=== PATIENT | female | born 1940 | race Hispanic/Latino ===

== ENCOUNTER 2018-04-18 20:13 | Observation (INO) | payer MEDICARE, OTHER ==
[2018-04-18] MEDS ORDERED: Aspirin 325 mg EC Tablets PO STA (21:06)
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
[2018-04-18 21:28] LABS: BASO # 0.1 K/uL (0.0-0.2); BASO % 0.8 % (0.0-2.0); EOS # 0.1 K/uL (0.0-0.7); EOS % 1.5 % (0.0-4.0); LYMPH % 11.8 % (20.0-40.0); MEAN CELL VOLUME 87.4 fL (81.0-99.0); MEAN CORPUSCULAR HEMOGLOBIN 30.2 pg (27.0-31.0); MEAN CORPUSCULAR HGB CONC 34.5 g/dL (33.0-37.0); MEAN PLATELET VOLUME 9.1 fL (7.2-11.7); MONO # 0.6 K/uL (0.0-0.8); MONO % 6.7 % (0.0-10.0); NEUT # 6.9 K/uL (1.8-7.0); NEUT % 79.2 % (50.0-75.0); NRBC % 0.1 % (0.0-2.0); RBC 4.98 Mil/uL (3.80-5.20); RED CELL DISTRIBUTION WIDTH 14.9 % (11.5-14.5); WHITE BLOOD COUNT 8.7 K/uL (4.8-10.8)
[2018-04-18 21:35] LABS: INR 1.2; PROTHROMBIN TIME 13.1 SECONDS (9.7-12.2)
[2018-04-18 22:19] LABS: ALB/GLOB RATIO 1.3 (1.0-2.1); ALT/SGPT 20 U/L (9-52); AST/SGOT 20 U/L (14-36); BLOOD UREA NITROGEN 11 mg/dL (7-17); CALCIUM 9.4 mg/dl (8.6-10.4); GFR AFRICAN-AMERICAN > 60; GFR NON-AFRICAN AMERICAN > 60
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
[2018-04-19 05:00] LABS: CK-MB 1.32 ng/mL (0.0-3.38)
--- NOTE | 2018-04-19 08:18 | RAD ---
Date of service: 04/18/2018 PROCEDURE: CHEST RADIOGRAPH, 1 VIEW HISTORY: chest pain COMPARISON: 10/27/2016 FINDINGS: LUNGS: Chin obscures each apex. There is opacity projecting over the left mid to lower lung zone Basilio changes in size and configuration between the 2 frontal views available. This may in part be due to technique and body habitus projection. However is not appreciated on prior study. AP a lateral view is recommended for further clarification. PLEURA: No pneumothorax or pleural fluid seen. CARDIOVASCULAR: Top-normal heart size. Aortic knob calcified. No chris pulmonary venous congestion OSSEOUS STRUCTURES: Not clearly appreciated over thoracic spine VISUALIZED UPPER ABDOMEN: Normal. OTHER FINDINGS: None. IMPRESSION: The inferior left hemithoracic opacity changes in configuration between the 2 available frontal views as detailed above. For clarification recommend PA and lateral views
--- NOTE | 2018-04-19 10:59 | CARD ---
APPROVED REPORT Date of service: 04/18/2018 EKG Measurement Heart [id number] <Conclusion> Sinus rhythm with premature supraventricular complexes Left axis deviation Incomplete right bundle branch block Possible Lateral infarct, age undetermined Abnormal ECG
[2018-04-19 11:58] LABS: CK-MB 1.26 ng/mL (0.0-3.38)
--- NOTE | 2018-04-19 16:27 | CP.PCM.PN ---
Subjective - Date & Time of Evaluation Date of Evaluation: 04/19/18 Time of Evaluation: 11:00 - Subjective Subjective: PGY-1 Medicine Progress Note for Dr. Kaiser's service Patient seen and examined at bedside. Patient offers no acute complaints. Patient denies chest pain, sob, n/v, constipation or diarrhea, dysuria, headaches, dizziness, palpitations, diaphoresis, fevers and chills. Objective - Vital Signs/Intake and Output Vital Signs (last 24 hours): Temp Pulse Resp BP Pulse Ox 97.5 F L 69 20 141/94 H 98 04/19/18 15:00 04/19/18 15:00 04/19/18 15:00 04/19/18 15:00 04/19/18 15:00 - Medications Medications: Current Medications Acetaminophen (Tylenol 325mg Tab) 650 mg PO Q6 PRN PRN Reason: Pain, moderate (4-7) Famotidine (Pepcid) 20 mg PO DAILY [facility] Last Admin: 04/19/18 14:42 Dose: 20 mg Heparin Sodium (Porcine) (Heparin) 5,000 units SC Q8 [facility] Last Admin: 04/19/18 14:43 Dose: 5,000 units Levothyroxine Sodium (Synthroid) 75 mcg PO 0630 [facility] Losartan Potassium (Cozaar) 50 mg PO DAILY [facility] Last Admin: 04/19/18 14:42 Dose: 50 mg Pneumococcal Polyvalent Vaccine (Pneumovax 23 Vaccine) 0.5 ml IM .ONCE ONE Stop: 04/21/18 12:01 Zolpidem Tartrate (Ambien) 5 mg PO HS [facility] - Labs Labs: 04/18/18 21:17 04/18/18 21:56 PT 13.1 SECONDS (9.7-12.2) H 04/18/18 21:17 INR 1.2 04/18/18 21:17 APTT 36 SECONDS (21-34) H 04/18/18 21:17 - Constitutional Appears: Non-toxic, No Acute Distress - Head Exam Head Exam: NORMAL INSPECTION, NORMOCEPHALIC - Respiratory Exam Respiratory Exam: Clear to Ausculation Bilateral, NORMAL BREATHING PATTERN. absent: Rales, Rhonchi, Wheezes - Cardiovascular Exam Cardiovascular Exam: REGULAR RHYTHM, +S1, +S2 - GI/Abdominal Exam GI & Abdominal Exam: Soft, Normal Bowel Sounds. absent: Distended, Firm, Guarding, Rigid, Tenderness - Extremities Exam Extremities Exam: Normal Inspection. absent: Calf Tenderness, Pedal Edema - Back Exam Back Exam: NORMAL INSPECTION. absent: CVA tenderness (L), CVA tenderness (R) - Neurological Exam Neurological Exam: Alert, Awake, Normal Gait, Oriented x3 - Psychiatric Exam Psychiatric exam: Normal Affect, Normal Mood - Skin Skin Exam: Intact, Normal Color Assessment and Plan - Assessment and Plan (Free Text) Assessment: Patient is a 77 yo female with PMH Parkinson, HTN, Hypothyroidism, and HLD presents to the hospital for evaluation of chest pain Plan: Chest Pain (resolved) EKG- negative for STEMI or NSTEMI AMAURI x3 negative Parkinson's Disease Carbidopa/Levodopa 25/100mg po daily HTN Losartan 50mg po daily Enalapril 2.5mg po daily Hypothyroidism Synthroid 75mg po gio HLD Lovastatin 10mg po daily Prophylaxis GI ppx: Pepcid 20mg po daily DVT ppx: Heparin 5000 units scq8h
[2018-04-19 20:51] LABS: URINE BACTERIA RARE (<OCC); URINE BILIRUBIN NEGATIVE (NEGATIVE); URINE BLOOD NEGATIVE (NEGATIVE); URINE CLARITY Clear (Clear); URINE COLOR Yellow (YELLOW); URINE GLUCOSE (UA) NORMAL (Normal); URINE LEUKOCYTE ESTERASE NEG Leu/uL (Negative); URINE PROTEIN NEGATIVE (NEGATIVE); URINE UROBILINOGEN NORMAL mg/dL (0.2-1.0)
[2018-04-19] MEDS ORDERED: Rosuvastatin Calcium 2.5 mg Tab PO SCH (22:00)
[2018-04-20 00:47] VITALS: O2SAT 96
[2018-04-20] MEDS ORDERED: Levothyroxine 75 MCG TAB PO SCH (06:30)
[2018-04-20 07:39] LABS: BASO # 0.1 K/uL (0.0-0.2); BASO % 1.4 % (0.0-2.0); EOS # 0.2 K/uL (0.0-0.7); EOS % 2.7 % (0.0-4.0); HEMOGLOBIN 14.7 g/dL (11.0-16.0); LYMPH # 1.3 K/uL (1.0-4.3); MEAN CELL VOLUME 88.9 fL (81.0-99.0); MEAN CORPUSCULAR HEMOGLOBIN 29.8 pg (27.0-31.0); MEAN CORPUSCULAR HGB CONC 33.5 g/dL (33.0-37.0); MEAN PLATELET VOLUME 9.4 fL (7.2-11.7); MONO # 0.5 K/uL (0.0-0.8); MONO % 7.8 % (0.0-10.0); NEUT % 66.1 % (50.0-75.0); NRBC % 0.1 % (0.0-2.0); RBC 4.95 Mil/uL (3.80-5.20); RED CELL DISTRIBUTION WIDTH 15.3 % (11.5-14.5)
[2018-04-20 07:52] VITALS: RESP 18; TEMP 97.4
[2018-04-20 08:06] LABS: ALB/GLOB RATIO 1.1 (1.0-2.1); ALBUMIN 3.7 g/dL (3.5-5.0); ALT/SGPT 14 U/L (9-52); AST/SGOT 17 U/L (14-36); BLOOD UREA NITROGEN 10 mg/dL (7-17); CALCIUM 9.2 mg/dl (8.6-10.4); GFR AFRICAN-AMERICAN > 60; GFR NON-AFRICAN AMERICAN > 60
[2018-04-20 10:17] VITALS: BP 176/98
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
[2018-04-20 16:16] VITALS: PULSE 80
[2018-04-21] MEDS ORDERED: Pneumococcal 23-Valent Vaccine IM ONE (12:00)
== END 2018-04-20 12:59 | disposition home or self-care (01) ==
LOC: C.ER 20:13 → C.6T 23:38
PROVIDERS: ADMIT Internal Medicine; ATTEND Internal Medicine
DX: R07.9 Chest pain, unspecified (principal); G20 Parkinson's disease; E78.00 Pure hypercholesterolemia, unspecified; E78.5 Hyperlipidemia, unspecified; G47.00 Insomnia, unspecified; I10 Essential (primary) hypertension; Z74.01 Bed confinement status; Z98.1 Arthrodesis status; H26.9 Unspecified cataract; E03.9 Hypothyroidism, unspecified
CPT/HCPCS: 36415; 71045; 80053; 81001; 83735; 84100; 84484; 85025; 85610; 85730; 93005; 99285; G0378; J1644

== ENCOUNTER 2018-07-09 09:10 | Observation (INO) | payer MEDICARE, OTHER ==
[2018-07-09 10:09] LABS: BASO # 0.1 K/uL (0.0-0.2); BASO % 1.1 % (0.0-2.0); EOS # 0.1 K/uL (0.0-0.7); EOS % 1.6 % (0.0-4.0); HEMOGLOBIN 14.8 g/dL (11.0-16.0); LYMPH # 1.9 K/uL (1.0-4.3); LYMPH % 20.8 % (20.0-40.0); MEAN CELL VOLUME 88.4 fL (81.0-99.0); MEAN CORPUSCULAR HEMOGLOBIN 29.1 pg (27.0-31.0); MONO # 0.6 K/uL (0.0-0.8); MONO % 6.7 % (0.0-10.0); NEUT # 6.3 K/uL (1.8-7.0); NEUT % 69.8 % (50.0-75.0); NRBC % 0.2 % (0.0-2.0); RBC 5.07 Mil/uL (3.80-5.20); RED CELL DISTRIBUTION WIDTH 15.5 % (11.5-14.5)
[2018-07-09 10:25] LABS: INR 1.2; PROTHROMBIN TIME 13.3 SECONDS (9.7-12.2)
[2018-07-09 10:26] LABS: ALB/GLOB RATIO 1.1 (1.0-2.1); ALBUMIN 3.8 g/dL (3.5-5.0); ALT/SGPT 21 U/L (9-52); AST/SGOT 24 U/L (14-36); BLOOD UREA NITROGEN 24 mg/dL (7-17); CALCIUM 9.2 mg/dl (8.6-10.4); GFR NON-AFRICAN AMERICAN > 60
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
[2018-07-09 13:15] LABS: HDL CHOLESTEROL 32 mg/dL (30-70)
[2018-07-09 13:25] LABS: LDL CHOLESTEROL 121 mg/dL (0-129)
--- NOTE | 2018-07-09 14:07 | RAD ---
Date of service: 07/09/2018 PROCEDURE: CHEST RADIOGRAPH, 1 VIEW HISTORY: CP COMPARISON: 04/18/2018 FINDINGS: LUNGS: The lungs are well inflated and clear. Haziness in the lower lobe is artifactual as the patient was unable to move the 4 away from the filled. PLEURA: No pneumothorax or pleural effusion. CARDIOVASCULAR: The heart is normal in size. No aortic atherosclerotic calcifications present. OSSEOUS STRUCTURES: Within normal limits for the patient's age. VISUALIZED UPPER ABDOMEN: Normal. OTHER FINDINGS: None. IMPRESSION: No active pulmonary disease.
--- NOTE | 2018-07-09 14:52 | CP.PCM.HP ---
<Keke Ryan - Last Filed: 07/09/18 15:14> History of Present Illness - History of Present Illness History of Present Illness: History and Physical - Dr. Joshua's Service HPI: 77 y/o female with PMHx of HTN, Parkinson's disease and hypothyroidism presented to the ED due to complaining of chest pain to her home health aide at home. Patient states the pain lasted for only a few seconds and also came with palpitations. At that time, she felt like she was "going to " and as if someone was stabbing her with a knife. The sharp pain radiated to both of her arms, but it did not go to her back or neck. She made her home health aide call her nephew, who is her proxy, to speak to him just in case she was going to . EMS arrived and took her to the ED. Her home health aide came with her. Patient denies shortness of breath, cough, wheezing, headache, nausea, vomiting, diarrhea, fever, chills, night sweats. Of note, patient has been here at [facility] for the same complaint last April per EMR review. Dr. [facility]'s service admitted her. Chest pain r/o ACS was negative at that time. This was the last time patient was in the hospital. ROS: as per HPI PMD: Thelma PMHx: HTN, Parkinson's disease, hypothyroidism PSHx: cholecystectomy FamHx: unknown SocHx: former 40 ppd smoker and social EtOH (both stopped 2 years ago). Lives with Alta, her home health aid. Proxy: Joseph (nephew) lives in [place]. Meds: synthroid 75 mcg, carbidopa/levodopa 25/100 mg, enalapril 2.5 mg, ambien 5 mg qhs, losartan 50 mg, lovastatin 10 mg Allergies: levaquin and morphine Present on Admission - Present on Admission Any Indicators Present on Admission: Yes Past Patient History - Infectious Disease Hx of Infectious Diseases: None - Past Social History Smoking Status: Never Smoked - CARDIAC Hx Hypercholesterolemia: Yes Hx Hypertension: Yes - NEUROLOGICAL Hx Parkinson's Disease: Yes - ENDOCRINE/METABOLIC Hx Hypothyroidism: Yes - MUSCULOSKELETAL/RHEUMATOLOGICAL Other/Comment: hx of spinal fusion c4-c5. LUE contracted. "GAIT SYNDROME" - GASTROINTESTINAL Hx Gastroesophageal Reflux: Yes - PSYCHIATRIC Hx Depression: Yes Hx Substance Use: No - SURGICAL HISTORY Hx Cholecystectomy: Yes Meds Allergies/Adverse Reactions: Allergies Allergy/AdvReac Type Severity Reaction Status Date / Time levofloxacin [From Levaquin] Allergy Verified 04/04/16 20:17 morphine Allergy Verified 04/04/16 20:17 Physical Exam - Head Exam Head Exam: ATRAUMATIC, NORMAL INSPECTION - Eye Exam Eye Exam: EOMI, Normal appearance - ENT Exam ENT Exam: Mucous Membranes Moist, Normal Exam - Neck Exam Neck exam: Positive for: Normal Inspection. Negative for: Lymphadenopathy Additional comments: no JVD negative hepatojugular reflex - Respiratory Exam Respiratory Exam: Clear to Auscultation Bilateral, NORMAL BREATHING PATTERN - Cardiovascular Exam Cardiovascular Exam: REGULAR RHYTHM - GI/Abdominal Exam GI & Abdominal Exam: Normal Bowel Sounds, Soft. absent: Distended, Firm, Guarding, Rebound, Rigid - Extremities Exam Additional comments: left arm and hand contracture (flexed left elbow and left hand fisted on chest). Peripheral pulses strong, no edema - Neurological Exam Neurological exam: Alert Additional comments: Patient knows her name and , but does not know the correct year. She thinks it is 2016. - Psychiatric Exam Psychiatric exam: Normal Affect, Normal Mood - Skin Skin Exam: Dry, Intact, Normal Color, Warm Results - Vital Signs Recent Vital Signs: Last Vital Signs Temp 97.7 F 07/09/18 12:46 Pulse 104 H 07/09/18 12:46 Resp 20 07/09/18 12:46 BP 137/91 H 07/09/18 12:46 Pulse Ox 96 07/09/18 12:46 - Labs Result Diagrams: 07/09/18 09:55 07/09/18 09:55 Labs: Laboratory Results - last 24 hr 07/09/18 07/09/18 07/09/18 09:35 09:55 09:55 WBC 9.0 RBC 5.07 Hgb 14.8 Hct 44.8 MCV 88.4 MCH 29.1 MCHC 33.0 RDW 15.5 H Plt Count 477 H D MPV 8.0 Neut % (Auto) 69.8 Lymph % (Auto) 20.8 [place] % (Auto) 6.7 Eos % (Auto) 1.6 Baso % (Auto) 1.1 Neut # (Auto) 6.3 Lymph # (Auto) 1.9 [place] # (Auto) 0.6 Eos # (Auto) 0.1 Baso # (Auto) 0.1 PT INR APTT Sodium 138 Potassium 4.4 Chloride 103 Carbon Dioxide 25 Anion Gap 14 BUN 24 H Creatinine 0.7 Est GFR ( Amer) > 60 Est GFR (Non-Af Amer) > 60 POC Glucose (mg/dL) 81 Random Glucose 97 Hemoglobin A1c Calcium 9.2 Total Bilirubin 1.0 AST 24 ALT 21 Alkaline Phosphatase 136 H D Total Creatine Kinase 24 L CK-MB (Mass) 0.40 Troponin I < 0.0120 Total Protein 7.2 Albumin 3.8 Globulin 3.4 Albumin/Globulin Ratio 1.1 Triglycerides 157 H Cholesterol 208 H LDL Cholesterol Direct 121 HDL Cholesterol 32 TSH 3rd Generation 10.70 H 07/09/18 07/09/18 09:55 12:48 WBC RBC Hgb Hct MCV MCH MCHC RDW Plt Count MPV Neut % (Auto) Lymph % (Auto) [place] % (Auto) Eos % (Auto) Baso % (Auto) Neut # (Auto) Lymph # (Auto) [place] # (Auto) Eos # (Auto) Baso # (Auto) PT 13.3 H INR 1.2 APTT 34 Sodium Potassium Chloride Carbon Dioxide Anion Gap BUN Creatinine Est GFR ( Amer) Est GFR (Non-Af Amer) POC Glucose (mg/dL) Random Glucose Hemoglobin A1c 5.8 Calcium Total Bilirubin AST ALT Alkaline Phosphatase Total Creatine Kinase CK-MB (Mass) Troponin I Total Protein Albumin Globulin Albumin/Globulin Ratio Triglycerides Cholesterol LDL Cholesterol Direct HDL Cholesterol TSH 3rd Generation Assessment & Plan - Assessment and Plan (Free Text) Assessment: 77 y/o female with PMHx of HTN, Parkinson's disease and hypothyroidism presented to the ED due to complaining of chest pain at home. Currently stable on the medicine telemetry floor. Chest pain r/o ACS -AMAURI in the ED negative - EKG with RBBB which was present during Apr admission for the same chest pain r/o ACS. Initial negative troponin. Will follow EKG and trops at 15:30 and 21:30 today -cardiology consult as needed, if AMAURI/EKG becomes positive -crestor 5 mg daily here (pt takes simvastatin at home) -telemetry Parkinson's disease -c/w home med carbidopa/levodopa 25/100 mg daily HTN -c/w home med enalapril 2.5 mg daily -c/w home med losartan 50 mg daily Hypothyroidism -c/w home med synthroid 75 mcg daily Insomnia -ambien 5mg qhs PRN ppx: GI: pepcid 20 mg PO daily DVT: heparin 5000 mg sq q8h Code: Pending. called proxy nephew Joseph Johnson without any response yet. [phone]. Home health aide Alta: [phone]. Case d/w Dr. Josiane Davies Law PGY1 <Catherine Joshua - Last Filed: 07/09/18 20:15> Results - Vital Signs Recent Vital Signs: Last Vital Signs Temp 97.5 F L 07/09/18 16:09 Pulse 105 H 07/09/18 18:00 Resp 20 07/09/18 16:09 BP 122/84 07/09/18 16:09 Pulse Ox 97 07/09/18 17:46 - Labs Result Diagrams: 07/09/18 09:55 07/09/18 09:55 Labs: Laboratory Results - last 24 hr 07/09/18 07/09/18 07/09/18 09:35 09:55 09:55 WBC 9.0 RBC 5.07 Hgb 14.8 Hct 44.8 MCV 88.4 MCH 29.1 MCHC 33.0 RDW 15.5 H Plt Count 477 H D MPV 8.0 Neut % (Auto) 69.8 Lymph % (Auto) 20.8 [place] % (Auto) 6.7 Eos % (Auto) 1.6 Baso % (Auto) 1.1 Neut # (Auto) 6.3 Lymph # (Auto) 1.9 [place] # (Auto) 0.6 Eos # (Auto) 0.1 Baso # (Auto) 0.1 PT INR APTT Sodium 138 Potassium 4.4 Chloride 103 Carbon Dioxide 25 Anion Gap 14 BUN 24 H Creatinine 0.7 Est GFR ( Amer) > 60 Est GFR (Non-Af Amer) > 60 POC Glucose (mg/dL) 81 Random Glucose 97 Hemoglobin A1c Calcium 9.2 Total Bilirubin 1.0 AST 24 ALT 21 Alkaline Phosphatase 136 H D Total Creatine Kinase 24 L CK-MB (Mass) 0.40 Troponin I < 0.0120 Total Protein 7.2 Albumin 3.8 Globulin 3.4 Albumin/Globulin Ratio 1.1 Triglycerides 157 H Cholesterol 208 H LDL Cholesterol Direct 121 HDL Cholesterol 32 TSH 3rd Generation 10.70 H 07/09/18 07/09/18 07/09/18 09:55 12:48 16:19 WBC RBC Hgb Hct MCV MCH MCHC RDW Plt Count MPV Neut % (Auto) Lymph % (Auto) [place] % (Auto) Eos % (Auto) Baso % (Auto) Neut # (Auto) Lymph # (Auto) [place] # (Auto) Eos # (Auto) Baso # (Auto) PT 13.3 H INR 1.2 APTT 34 Sodium Potassium Chloride Carbon Dioxide Anion Gap BUN Creatinine Est GFR ( Amer) Est GFR (Non-Af Amer) POC Glucose (mg/dL) Random Glucose Hemoglobin A1c 5.8 Calcium Total Bilirubin AST ALT Alkaline Phosphatase Total Creatine Kinase 27 L CK-MB (Mass) 0.47 Troponin I < 0.0120 Total Protein Albumin Globulin Albumin/Globulin Ratio Triglycerides Cholesterol LDL Cholesterol Direct HDL Cholesterol TSH 3rd Generation Attending/Attestation - Attestation I have personally seen and examined this patient.: Yes I have fully participated in the care of the patient.: Yes I have reviewed all pertinent clinical information: Yes Notes (Text): Patient was seen and examined has dementia,not able to give history Spoke to her health care facilities inspector at bedside. Patient was complaining of chest pain and saying that she was going to . This is second admission for chest pain. She was a smoker,stop an year ago,h/o HTN and HLD. she is bedbound.Has dementia. Multiple attempt made to contact her POA to discuss about advance directives and comfort care Vs further test. Not able to reach POA. Spoke to her primary DR Renee. Patient was followed by [employer] SUPERVISOR. Not known about the advance directives we will get cardiology consult try to reach POA again. continue home meds
[2018-07-09] MEDS: Carbidopa/Levodopa 25/100 CR PO SCH (15:09)
[2018-07-09 16:50] LABS: CK-MB 0.47 ng/mL (0.0-3.38)
[2018-07-09 22:39] LABS: CK-MB 0.41 ng/mL (0.0-3.38)
[2018-07-10] MEDS ORDERED: Sodium Chloride 0.9% 500 ML IV ONE ×2 (00:46→02:01)
[2018-07-10] MEDS ORDERED: Levothyroxine 75 MCG TAB PO SCH (06:30)
[2018-07-10 07:10] LABS: BASO # 0.1 K/uL (0.0-0.2); BASO % 0.8 % (0.0-2.0); EOS # 0.1 K/uL (0.0-0.7); EOS % 1.6 % (0.0-4.0); HEMOGLOBIN 13.2 g/dL (11.0-16.0); LYMPH # 1.3 K/uL (1.0-4.3); LYMPH % 18.6 % (20.0-40.0); MEAN CORPUSCULAR HEMOGLOBIN 29.9 pg (27.0-31.0); MEAN PLATELET VOLUME 8.6 fL (7.2-11.7); MONO # 0.4 K/uL (0.0-0.8); MONO % 5.8 % (0.0-10.0); NEUT % 73.2 % (50.0-75.0); NRBC % 0.1 % (0.0-2.0); RBC 4.41 Mil/uL (3.80-5.20); RED CELL DISTRIBUTION WIDTH 15.1 % (11.5-14.5); WHITE BLOOD COUNT 6.8 K/uL (4.8-10.8)
[2018-07-10 08:10] LABS: ALB/GLOB RATIO 1.1 (1.0-2.1); ALBUMIN 3.2 g/dL (3.5-5.0); ALT/SGPT 22 U/L (9-52); AST/SGOT 19 U/L (14-36); BLOOD UREA NITROGEN 20 mg/dL (7-17); CALCIUM 8.7 mg/dl (8.6-10.4); GFR NON-AFRICAN AMERICAN > 60
[2018-07-10] MEDS: Carbidopa/Levodopa 25/100 CR PO SCH (09:23)
--- NOTE | 2018-07-10 13:38 | CP.PCM.DIS ---
Provider - Provider Date of Admission: 07/09/18 11:44 Attending physician: Catherine Joshua MD Consults: None Time Spent in preparation of Discharge (in minutes): 70 Hospital Course - Lab Results Lab Results: Most Recent Lab Values WBC 6.8 K/uL (4.8-10.8) 07/10/18 06:50 RBC 4.41 Mil/uL (3.80-5.20) 07/10/18 06:50 Hgb 13.2 g/dL (11.0-16.0) 07/10/18 06:50 Hct 38.8 % (34.0-47.0) 07/10/18 06:50 MCV 88.0 fL (81.0-99.0) 07/10/18 06:50 MCH 29.9 pg (27.0-31.0) 07/10/18 06:50 MCHC 34.0 g/dL (33.0-37.0) 07/10/18 06:50 RDW 15.1 % (11.5-14.5) H 07/10/18 06:50 Plt Count 415 K/uL (130-400) H 07/10/18 06:50 MPV 8.6 fL (7.2-11.7) 07/10/18 06:50 Neut % (Auto) 73.2 % (50.0-75.0) 07/10/18 06:50 Lymph % (Auto) 18.6 % (20.0-40.0) L 07/10/18 06:50 [place] % (Auto) 5.8 % (0.0-10.0) 07/10/18 06:50 Eos % (Auto) 1.6 % (0.0-4.0) 07/10/18 06:50 Baso % (Auto) 0.8 % (0.0-2.0) 07/10/18 06:50 Neut # (Auto) 5.0 K/uL (1.8-7.0) 07/10/18 06:50 Lymph # (Auto) 1.3 K/uL (1.0-4.3) 07/10/18 06:50 [place] # (Auto) 0.4 K/uL (0.0-0.8) 07/10/18 06:50 Eos # (Auto) 0.1 K/uL (0.0-0.7) 07/10/18 06:50 Baso # (Auto) 0.1 K/uL (0.0-0.2) 07/10/18 06:50 PT 13.3 SECONDS (9.7-12.2) H 07/09/18 09:55 INR 1.2 07/09/18 09:55 APTT 34 SECONDS (21-34) 07/09/18 09:55 Sodium 137 mmol/L (132-148) 07/10/18 06:50 Potassium 3.7 mmol/L (3.6-5.2) 07/10/18 06:50 Chloride 105 mmol/L (98-107) 07/10/18 06:50 Carbon Dioxide 25 mmol/L (22-30) 07/10/18 06:50 Anion Gap 11 (10-20) 07/10/18 06:50 BUN 20 mg/dL (7-17) H 07/10/18 06:50 Creatinine 0.8 mg/dL (0.7-1.2) 07/10/18 06:50 Est GFR ( Amer) > 60 07/10/18 06:50 Est GFR (Non-Af Amer) > 60 07/10/18 06:50 POC Glucose (mg/dL) 81 mg/dL (65-110) 07/09/18 09:35 Random Glucose 92 mg/dL (65-105) 07/10/18 06:50 Hemoglobin A1c 5.8 % (4.2-6.5) 07/09/18 12:48 Calcium 8.7 mg/dl (8.6-10.4) 07/10/18 06:50 Phosphorus 3.3 mg/dL (2.5-4.5) 07/10/18 06:50 Magnesium 2.0 mg/dL (1.6-2.3) 07/10/18 06:50 Total Bilirubin 1.0 mg/dL (0.2-1.3) 07/10/18 06:50 AST 19 U/L (14-36) 07/10/18 06:50 ALT 22 U/L (9-52) 07/10/18 06:50 Alkaline Phosphatase 135 U/L (38-126) H 07/10/18 06:50 Total Creatine Kinase 22 U/L (30-135) L 07/09/18 22:04 CK-MB (Mass) 0.41 ng/mL (0.0-3.38) 07/09/18 22:04 Troponin I < 0.0120 ng/mL (0.00-0.120) 07/09/18 22:04 Total Protein 6.2 g/dL (6.3-8.3) L 07/10/18 06:50 Albumin 3.2 g/dL (3.5-5.0) L 07/10/18 06:50 Globulin 3.0 gm/dL (2.2-3.9) 07/10/18 06:50 Albumin/Globulin Ratio 1.1 (1.0-2.1) 07/10/18 06:50 Triglycerides 157 mg/dL (0-149) H 07/09/18 09:55 Cholesterol 208 mg/dL (0-199) H 07/09/18 09:55 LDL Cholesterol Direct 121 mg/dL (0-129) 07/09/18 09:55 HDL Cholesterol 32 mg/dL (30-70) 07/09/18 09:55 Free T4 0.89 ng/dL (0.78-2.19) 07/10/18 06:50 Free T3 pg/mL 2.11 pg/mL (2.77-5.27) L 07/10/18 06:50 TSH 3rd Generation 10.70 mIU/L (0.46-4.68) H 07/09/18 09:55 - Hospital Course Hospital Course: Upon Admission: Pt is a 77 y/o female with PMHx of HTN, Parkinson's disease and hypothyroidism presented to the ED due to complaining of chest pain to her home health aide at home. Patient states the pain lasted for only a few seconds and came with palpitations. At that time, she felt like she was "going to " and as if someone was stabbing her with a knife. The sharp pain radiated to both of her arms, but it did not go to her back or neck. She made her home health aide call her nephew, who is her proxy, to speak to him just in case she was going to . EMS arrived and took her to the ED. Her home health aide came with her. Patient denies shortness of breath, cough, wheezing, headache, nausea, vomiting, diarrhea, fever, chills, night sweats. Of note, patient has been here at [facility] for the same complaint last April per EMR review. Chest pain r/o ACS was negative at that time. This was the last time patient was in the hospital. Pt was admitted to rule out ACS. Hospital Course: Troponins and CKMB were all negative. repeat EKG showed the same RBBB. CXR showed no active disease. Pt was restarted on her home medications. The patient's POA was called but did not respond. The patient's niece, Danya, indicated that the family did not wish to proceed with further intervention at this time, and preferred medical management of the patient's conditions. Pt was deemed stable for discharge. Upon Discharge: Pt was deemed stable for discharge. She was instructed to continue her home medications as prescribed. Pt was instructed to return to the ED should symptoms return. Discharge Exam - Head Exam Head Exam: ATRAUMATIC, NORMAL INSPECTION, NORMOCEPHALIC - Eye Exam Eye Exam: EOMI, Normal appearance Pupil Exam: NORMAL ACCOMODATION, PERRL - Respiratory Exam Respiratory Exam: Clear to PA & Lateral, NORMAL BREATHING PATTERN. absent: Rales, Rhonchi, Wheezes - Cardiovascular Exam Cardiovascular Exam: REGULAR RHYTHM, +S1, +S2. absent: Gallop, Rubs, Systolic Murmur - GI/Abdominal Exam GI & Abdominal Exam: Normal Bowel Sounds, Soft. absent: Distended, Firm, Tenderness - Extremities Exam Extremities exam: normal inspection - Neurological Exam Neurological exam: Alert - Psychiatric Exam Psychiatric exam: Normal Affect, Normal Mood - Skin Skin Exam: Dry Discharge Plan - Discharge Medications Prescriptions: Aspirin [Ecotrin] 81 mg PO DAILY 14 Days tabec Carbidopa/Levodopa 25/100 CR [Sinemet CR] 1 tab PO DAILY 14 Days tab Enalapril Maleate [Vasotec] 2.5 mg PO DAILY 14 Days tab Levothyroxine [Synthroid] 75 mcg PO DAILY@0630 14 Days tab Losartan [Cozaar] 50 mg PO DAILY 14 Days tab Rosuvastatin Calcium [Crestor] 5 mg PO HS 14 Days tab Zolpidem 5 mg PO HS #14 - Follow Up Plan Condition: FAIR Disposition: HOME/ ROUTINE Instructions: Heart Healthy Diet, High Blood Pressure (DC), Chest Pain (DC) Additional Instructions: Please follow up with your primary care physician/ visiting nurse service within 1 week. Please continue your home medications as prescribed: Aspirin Sinimet Enalapril Losartan Simvistatin Synthroid Ambien Please return to the emergency department if symptoms worsen. Take care and be well.
[2018-07-10 15:58] VITALS: BP 125/80; PULSE 97; RESP 20; TEMP 97.9; O2SAT 95
--- NOTE | 2018-07-10 17:02 | CARD ---
APPROVED REPORT Date of service: 07/09/2018 EKG Measurement Heart [id number] MD [id number] <Conclusion> Sinus rhythm with premature supraventricular complexes Left axis deviation Low voltage QRS Incomplete right bundle branch block Inferior infarct, age undetermined Anterolateral infarct, age undetermined Abnormal ECG
--- NOTE | 2018-07-10 17:08 | CARD ---
APPROVED REPORT Date of service: 07/09/2018 EKG Measurement Heart [id number] [place] [id number] <Conclusion> Sinus rhythm with premature supraventricular complexes Left axis deviation Right bundle branch block Lateral infarct, age undetermined Abnormal ECG
--- NOTE | 2018-07-10 17:13 | CARD ---
APPROVED REPORT Date of service: 07/09/2018 EKG Measurement Heart [id number] NE [id number] <Conclusion> Sinus rhythm with premature atrial complexes Right bundle branch block Lateral infarct, age undetermined Abnormal ECG
== END 2018-07-10 16:32 | disposition home or self-care (01) ==
LOC: C.ER 09:10 → C.5S 11:44
PROVIDERS: ADMIT Internal Medicine; ATTEND Internal Medicine
DX: R07.9 Chest pain, unspecified (principal); R00.2 Palpitations; E03.9 Hypothyroidism, unspecified; E78.00 Pure hypercholesterolemia, unspecified; G20 Parkinson's disease; G47.00 Insomnia, unspecified; I10 Essential (primary) hypertension; I45.10 Unspecified right bundle-branch block; K21.9 Gastro-esophageal reflux disease without esophagitis; Z79.899 Other long term (current) drug therapy; Z98.1 Arthrodesis status; F32.9 Major depressive disorder, single episode, unspecified; Z87.891 Personal history of nicotine dependence
CPT/HCPCS: 36415; 71045; 80053; 80061; 82550; 82553; 82948; 83036; 83735; 84100; 84439; 84443; 84481; 84484; 85025; 85610; 85730; 92526; 92610; 93005; 97163; 97530; 99285; G0378; G8981; G8982; G8996; G8997; J1644; J7040

== ENCOUNTER 2019-01-23 16:54 | Inpatient (IN) | payer MEDICARE, OTHER ==
--- NOTE | 2019-01-23 17:52 | C.PDOC ---
History Of Present Illness PGY-[address] Alarcon Patient is 78 year old female with pmhx of Parkinson's disease, dementia, Hypothyroid, HTN presenting to the ER for fever, patient is minimally verbal but awake. Nurse aid at bedside who lives with patient states patient had decreased in appetite since yesterday and increased lethargy and tiredness. Nurse aid has noticed patient to be coughing continuosly since this morning with phlegm, states patient has difficulty clearing phlegm. As per nurse, patient does not complaint of pain. no recent sickness, patient's nurse aid is currently sick with a cold, seen wearing a protective mask. ROS unable to obtain from patient due to patient's dementia status. <Cesar Orozco - Last Filed: 01/23/19 19:52> <Dalia Alarcon - Last Filed: 01/23/19 19:00> History Per: Other (nurse aid ) History/Exam Limitations: clinical condition, physical impairment Onset/Duration Of Symptoms: Days Current Symptoms Are (Timing): Still Present Sick Contacts (Context): Friend(s) (nurse aid ) Associated Symptoms: Fever Additional History Per: Family (nurse aid ) <Cesar Orozco - Last Filed: 01/23/19 19:52> Time Seen by Provider: 01/23/19 17:20 Chief Complaint (Nursing): Fever Past Medical History Vital Signs: Last Vital Signs Temp 101.2 F H 01/23/19 17:09 Pulse 98 H 01/23/19 17:09 Resp 15 01/23/19 17:09 BP 121/81 01/23/19 17:09 Pulse Ox 98 01/23/19 18:41 - [facility] Procedures CLOSURE SKIN & SUBCUTANEOUS NEC (04/10/14) <Dalia Alarcon - Last Filed: 01/23/19 19:00> Reviewed: Historical Data, Vital Signs Vital Signs: Last Vital Signs Temp 101.2 F H 01/23/19 17:09 Pulse 98 H 01/23/19 17:09 Resp 15 01/23/19 17:09 BP 121/81 01/23/19 17:09 Pulse Ox 98 01/23/19 17:25 Primary Care Provider: Non [facility] Provider, - Medical History PMH: Depression, HTN, Hypercholesterolemia, Hypothyroidism, Parkinson's Disease Surgical History: Cholecystectomy - [facility] Procedures CLOSURE SKIN & SUBCUTANEOUS NEC (04/10/14) Family History: States: Unknown Family Hx - Social History Hx Tobacco Use: Yes (former smoker) Hx Alcohol Use: No Hx Substance Use: No <Cesar Orozco - Last Filed: 01/23/19 19:52> Review Of Systems Review Of Systems: ROS cannot be obtained secondary to pt's inabilty to answer questions. <Cesar Orozco - Last Filed: 01/23/19 19:52> Physical Exam - Physical Exam Appears: No Acute Distress, Confused, Chronically Ill Skin: Normal Color, Warm Head: Atraumatic, Normacephalic Eye(s): bilateral: Normal Inspection, PERRL Oral Mucosa: Moist Tongue: Normal Appearing Cardiovascular: Rhythm Regular Respiratory: No Rales, No Rhonchi, No Wheezing Gastrointestinal/Abdominal: Bowel Sounds, Soft, No Tenderness Extremity: No Normal ROM, Deformity (b/l toes deformity ), Other (left arm and hand contracture, left hand fisted to chest) Neurological/Psych: No Oriented x3, No Normal Speech Disoriented To: Place, Time, Situation <Cesar Orozco - Last Filed: 01/23/19 19:52> ED Course And Treatment - Laboratory Results Result Diagrams: 01/23/19 18:19 01/23/19 18:19 Lab Results: Total Bilirubin 2.1 mg/dL (0.2-1.3) H 01/23/19 18: AST 28 U/L (14-36) 01/23/19 18: ALT < 6 U/L (9-52) L D 01/23/19 18:19 Alkaline Phosphatase 134 U/L (38-126) H 01/23/19 18:19 Total Protein 7.8 g/dL (6.3-8.3) 01/23/19 18: Albumin 4.3 g/dL (3.5-5.0) 01/23/19 18:19 Globulin 3.6 gm/dL (2.2-3.9) 01/23/19 18:19 Albumin/Globulin Ratio 1.2 (1.0-2.1) 01/23/19 18:19 Urine Color Yellow (YELLOW) 01/23/19 18:19 Urine Clarity Hazy (Clear) 01/23/19 18:19 Urine pH 5.0 (5.0-8.0) 01/23/19 18:19 Ur Specific [place] 1.023 (1.003-1.030) 01/23/19 18:19 Urine Protein Negative mg/dL (NEGATIVE) 01/23/19 18:19 Urine Glucose (UA) Normal mg/dL (Normal) 01/23/19 18:19 Urine Ketones Negative mg/dL (NEGATIVE) 01/23/19 18:19 Urine Blood Negative (NEGATIVE) 01/23/19 18:19 Urine Nitrate Negative (NEGATIVE) 01/23/19 18:19 Urine Bilirubin Negative (NEGATIVE) 01/23/19 18:19 Urine Urobilinogen Normal mg/dL (0.2-1.0) 01/23/19 18:19 Ur Leukocyte Esterase Neg Tg/uL (Negative) 01/23/19 18:19 Urine Bacteria Rare (<OCC) 01/23/19 18:19 Lab Interpretation: Abnormal (WBC 13.4, K+ 5.6 hemolyzed, BUN 27) - Radiology CXR: Interpreted by Ak CXR Interpretation: Yes: No Acute Disease <Dalia Alarcon - Last Filed: 01/23/19 19:00> - Laboratory Results Result Diagrams: 01/23/19 18:19 01/23/19 18:19 O2 Sat by Pulse Oximetry: 98 <Cesar Orozco - Last Filed: 01/23/19 19:52> Medical Decision Making Medical Decision Making: Ordered CBC, CMP, U/A Chest Xray - no acute pulm disease nursing swallow eval liquid tylenol x 1 IV Zithromax and rocephin NS bolus -Spoke with Dr mills, hospitalist substation inspector, accepts patient to service at 19:34. Spoke with nurse aid that patient will be admitted to hospital plan d/w Dr Dorian Orozco, PGY-1 <Cesar Orozco - Last Filed: 01/23/19 19:52> Disposition <Dalia Alarcon - Last Filed: 01/23/19 19:00> - Disposition Disposition Time: 19:04 <Cesar Orozco - Last Filed: 01/23/19 19:52> - Disposition Disposition: HOSPITALIZED Condition: FAIR Forms: [facility] (Portuguese) - Clinical Impression Clinical Impression: Fever
[2019-01-23] MEDS ORDERED: Acetaminophen 160 mg/5 ml UD PO ONE (18:26)
[2019-01-23] MEDS ORDERED: Acetaminophen 650mg/20.3ml solution UD ONE (18:33)
[2019-01-23 18:38] LABS: BASO # 0.1 K/uL (0.0-0.2); BASO % 0.9 % (0.0-2.0); EOS # 0.1 K/uL (0.0-0.7); EOS % 0.8 % (0.0-4.0); HEMOGLOBIN 12.7 g/dL (11.0-16.0); LYMPH # 1.8 K/uL (1.0-4.3); LYMPH % 13.4 % (20.0-40.0); MEAN CELL VOLUME 87.9 fL (81.0-99.0); MEAN CORPUSCULAR HEMOGLOBIN 28.9 pg (27.0-31.0); MEAN CORPUSCULAR HGB CONC 32.8 g/dL (33.0-37.0); MEAN PLATELET VOLUME 9.2 fL (7.2-11.7); MONO % 7.1 % (0.0-10.0); NEUT # 10.5 K/uL (1.8-7.0); NEUT % 77.8 % (50.0-75.0); RBC 4.39 Mil/uL (3.80-5.20); RED CELL DISTRIBUTION WIDTH 14.9 % (11.5-14.5); WHITE BLOOD COUNT 13.4 K/uL (4.8-10.8)
[2019-01-23 18:39] LABS: URINE BACTERIA RARE (<OCC); URINE BILIRUBIN NEGATIVE (NEGATIVE); URINE BLOOD NEGATIVE (NEGATIVE); URINE CLARITY Hazy (Clear); URINE GLUCOSE (UA) NORMAL (Normal); URINE LEUKOCYTE ESTERASE NEG Leu/uL (Negative); URINE PROTEIN NEGATIVE (NEGATIVE); URINE UROBILINOGEN NORMAL mg/dL (0.2-1.0)
[2019-01-23 18:40] LABS: BLOOD UREA NITROGEN 27 mg/dL (7-17); CALCIUM 8.8 mg/dl (8.6-10.4); GFR NON-AFRICAN AMERICAN > 60
[2019-01-23 18:46] LABS: ALB/GLOB RATIO 1.2 (1.0-2.1); ALBUMIN 4.3 g/dL (3.5-5.0); ALT/SGPT < 6 U/L (9-52); AST/SGOT 28 U/L (14-36); URINE COLOR YELLOW (YELLOW)
[2019-01-23] MEDS ORDERED: cefTRIAXone IV 1 gm in Dextros 50 ML IVPB ONE (18:58)
[2019-01-23] MEDS ORDERED: Sodium Chloride 0.9% 1,000 ML IV ONE (18:58)
[2019-01-23] MEDS ORDERED: Azithromycin 500mg/250ML NS 500 MG/250 ML BAG IV ONE (19:00)
[2019-01-23 19:08] LABS: VENOUS BLOOD GAS PCO2 43 mmHg (40-60); VENOUS BLOOD GAS PO2 36 mm/Hg (30-55); VENOUS BLOOD PH 7.38 (7.32-7.43)
[2019-01-23] MEDS ORDERED: Sodium Chloride 0.9% 1,000 ML ONE (19:08)
[2019-01-23] MEDS ORDERED: Azithromycin 500mg/250ML NS 500 MG/250 ML BAG IVPB ONE (20:19)
--- NOTE | 2019-01-23 20:39 | CP.PCM.HP ---
History of Present Illness - History of Present Illness History of Present Illness: HPI: 78 year old female with pmhx of Parkinson's disease, dementia, Hypothyroid, HTN presenting to the ER for fever, patient is minimally verbal but awake. Nurse aid at bedside who lives with patient states patient had decreased in appetite since yesterday and increased lethargy and tiredness. Also noted tiredness and sweating last n9ight, said that she felt warm to touch. Nurse aid has noticed patient to be coughing continuosly since this morning with phlegm, states patient has difficulty clearing phlegm. As per nurse, patient does not complaint of pain. no recent sickness, patient's nurse aid is currently sick with a cold. Pt was last seen at home by PMD who makes house calls about 10 days ago. ROS unable to obtain from patient due to patient's dementia status. ROS: as per HPI PMD: Dr Burrows [phone] PMHx: HTN, Parkinson's disease, hypothyroidism PSHx: cholecystectomy FamHx: unknown SocHx: former 40 ppd smoker and social EtOH (both stopped 2 years ago). Lives with [facility], her home health aid. Proxy: Joseph (nephew) lives in [place]. Meds: synthroid 75 mcg, carbidopa/levodopa 25/100 mg, enalapril 2.5 mg, ambien 5 mg qhs, losartan 50 mg, lovastatin 10 mg Allergies: levaquin and morphine proxy cory garcia [phone] Present on Admission - Present on Admission Any Indicators Present on Admission: No Past Patient History - Infectious Disease Hx of Infectious Diseases: None - Past Social History Smoking Status: Never Smoked - CARDIAC Hx Hypercholesterolemia: Yes Hx Hypertension: Yes - NEUROLOGICAL Hx Parkinson's Disease: Yes - ENDOCRINE/METABOLIC Hx Hypothyroidism: Yes - MUSCULOSKELETAL/RHEUMATOLOGICAL Other/Comment: hx of spinal fusion c4-c5. LUE contracted. "GAIT SYNDROME" - GASTROINTESTINAL Hx Gastroesophageal Reflux: Yes - PSYCHIATRIC Hx Depression: Yes Hx Substance Use: No - SURGICAL HISTORY Hx Cholecystectomy: Yes Meds Allergies/Adverse Reactions: Allergies Allergy/AdvReac Type Severity Reaction Status Date / Time levofloxacin [From Levaquin] Allergy Verified 04/04/16 20:17 morphine Allergy Verified 04/04/16 20:17 Physical Exam - Additional Findings Additional findings: -General Chronically Ill - Head Exam Head Exam: ATRAUMATIC, NORMAL INSPECTION, NORMOCEPHALIC - Eye Exam Eye Exam: EOMI, Normal appearance Pupil Exam: NORMAL ACCOMODATION, PERRL - Respiratory Exam Respiratory Exam: Clear to PA & Lateral, NORMAL BREATHING PATTERN. absent: Rales, Rhonchi, Wheezes - Cardiovascular Exam Cardiovascular Exam: REGULAR RHYTHM, +S1, +S2. absent: Gallop, Rubs, Systolic Murmur - GI/Abdominal Exam GI & Abdominal Exam: Normal Bowel Sounds, Soft. absent: Distended, Firm, Tenderness - Extremities Exam Extremities exam: normal inspection - Neurological Exam Neurological exam: Alert, aware self and of president of [facility] - Psychiatric Exam Psychiatric exam: Normal Affect, Normal Mood - Skin Skin Exam: Dry Results - Vital Signs Recent Vital Signs: Last Vital Signs Temp 98.9 F 01/23/19 20:06 Pulse 84 01/23/19 20:06 Resp 17 01/23/19 20:06 BP 108/74 01/23/19 20:06 Pulse Ox 99 01/23/19 20:06 - Labs Result Diagrams: 01/23/19 18:19 01/23/19 18:19 Labs: Laboratory Results - last 24 hr 01/23/19 01/23/19 01/23/19 18:19 18:19 18:19 WBC 13.4 H D RBC 4.39 Hgb 12.7 Hct 38.6 MCV 87.9 MCH 28.9 MCHC 32.8 L RDW 14.9 H Plt Count 485 H MPV 9.2 Neut % (Auto) 77.8 H Lymph % (Auto) 13.4 L [place] % (Auto) 7.1 Eos % (Auto) 0.8 Baso % (Auto) 0.9 Neut # (Auto) 10.5 H Lymph # (Auto) 1.8 [place] # (Auto) 1.0 H Eos # (Auto) 0.1 Baso # (Auto) 0.1 pO2 VBG pH VBG pCO2 VBG HCO3 VBG Total CO2 VBG O2 Sat (Calc) VBG Base Excess VBG Potassium Glucose Lactate Sodium 136 Potassium 5.6 H Chloride 100 Carbon Dioxide 25 Anion Gap 17 BUN 27 H Creatinine 0.7 Est GFR ( Amer) > 60 Est GFR (Non-Af Amer) > 60 Random Glucose 103 Calcium 8.8 Total Bilirubin 2.1 H AST 28 ALT < 6 L D Alkaline Phosphatase 134 H Total Protein 7.8 Albumin 4.3 Globulin 3.6 Albumin/Globulin Ratio 1.2 Venous Blood Potassium Urine Color Yellow Urine Clarity Hazy Urine pH 5.0 Ur Specific [place] 1.023 Urine Protein Negative Urine Glucose (UA) Normal Urine Ketones Negative Urine Blood Negative Urine Nitrate Negative Urine Bilirubin Negative Urine Urobilinogen Normal Ur Leukocyte Esterase Neg Urine Bacteria Rare 01/23/19 19:05 WBC RBC Hgb Hct MCV MCH MCHC RDW Plt Count MPV Neut % (Auto) Lymph % (Auto) [place] % (Auto) Eos % (Auto) Baso % (Auto) Neut # (Auto) Lymph # (Auto) [place] # (Auto) Eos # (Auto) Baso # (Auto) pO2 36 VBG pH 7.38 VBG pCO2 43 VBG HCO3 24.1 VBG Total CO2 26.7 VBG O2 Sat (Calc) 69.9 H VBG Base Excess 0.0 VBG Potassium 4.0 Glucose 96 Lactate 2.1 Sodium 137.0 Potassium Chloride 105.0 Carbon Dioxide Anion Gap BUN Creatinine Est GFR ( Amer) Est GFR (Non-Af Amer) Random Glucose Calcium Total Bilirubin AST ALT Alkaline Phosphatase Total Protein Albumin Globulin Albumin/Globulin Ratio Venous Blood Potassium 4.0 Urine Color Urine Clarity Urine pH Ur Specific [place] Urine Protein Urine Glucose (UA) Urine Ketones Urine Blood Urine Nitrate Urine Bilirubin Urine Urobilinogen Ur Leukocyte Esterase Urine Bacteria Assessment & Plan - Assessment and Plan (Free Text) Assessment: 77 y/o female with PMHx of HTN, Parkinson's disease and hypothyroidism presented to the ED due to fevers and sweats, possible L lobe infiltrates seen on CXR CAP -CXR: L Lobe infil -elevated WBCs, Febrile -Rocepin and Zithromax IVPB -NS @ 50 -Aspiration precautions -f/u speech swallow -f/u blood cultures Parkinson's disease -c/w home med carbidopa/levodopa 25/100 mg daily HTN -c/w home med enalapril 2.5 mg daily -c/w home med losartan 50 mg daily Hypothyroidism -c/w home med synthroid 75 mcg daily Insomnia -Ambien 5mg qhs PRN ppx: GI: pepcid 20 mg PO daily DVT: heparin 5000 mg sq q8h Puree Diet Home health aide [facility]: [phone].
[2019-01-23] MEDS: Sodium Chloride 0.9% 1,000 ML IV SCH (22:12)
[2019-01-24] MEDS ORDERED: Levothyroxine 75 MCG TAB PO SCH (06:30)
[2019-01-24 07:33] LABS: BASO # 0.1 K/uL (0.0-0.2); BASO % 0.9 % (0.0-2.0); EOS # 0.2 K/uL (0.0-0.7); EOS % 1.7 % (0.0-4.0); HEMOGLOBIN 11.5 g/dL (11.0-16.0); LYMPH # 1.5 K/uL (1.0-4.3); LYMPH % 13.2 % (20.0-40.0); MEAN CELL VOLUME 87.3 fL (81.0-99.0); MEAN CORPUSCULAR HEMOGLOBIN 29.5 pg (27.0-31.0); MEAN CORPUSCULAR HGB CONC 33.8 g/dL (33.0-37.0); MEAN PLATELET VOLUME 8.6 fL (7.2-11.7); MONO # 0.8 K/uL (0.0-0.8); MONO % 6.8 % (0.0-10.0); NEUT # 9.1 K/uL (1.8-7.0); NEUT % 77.4 % (50.0-75.0); NRBC % 0.1 % (0.0-2.0); RBC 3.89 Mil/uL (3.80-5.20); RED CELL DISTRIBUTION WIDTH 14.8 % (11.5-14.5); WHITE BLOOD COUNT 11.7 K/uL (4.8-10.8)
[2019-01-24 08:12] LABS: ALBUMIN 2.9 g/dL (3.5-5.0); ALT/SGPT 15 U/L (9-52); AST/SGOT 14 U/L (14-36); BLOOD UREA NITROGEN 19 mg/dL (7-17); CALCIUM 8.6 mg/dl (8.6-10.4); GFR NON-AFRICAN AMERICAN > 60
--- NOTE | 2019-01-24 09:20 | RAD ---
Date of service: 01/23/2019 HISTORY: fever, coughing r/o aspiration PNA COMPARISON: 07/09/2018 TECHNIQUE: 1 view obtained. FINDINGS: LUNGS: Again the patient as unable to remove her contracted left forearm away from her thorax. Nevertheless accounting for this a left mid lung zone infiltrate is believed present. The right lung is clear. The chin obscures parts of each lung apex. PLEURA: No significant pleural effusion identified, no pneumothorax apparent. CARDIOVASCULAR: There is presence of aortic atherosclerotic calcification on x-ray. Heart size within normal limits. No pulmonary vascular congestion. OSSEOUS STRUCTURES: Thoracic spondylosis. Bilateral shoulder arthrosis VISUALIZED UPPER ABDOMEN: Normal. OTHER FINDINGS: None. IMPRESSION: Left mid lung zone infiltrate suspect. Additionally confounding this area is an overlying left forearm which is contracted and apparently not movable by the patient.
[2019-01-24] MEDS: Carbidopa/Levodopa 25/100 CR PO SCH (10:00)
[2019-01-24] MEDS: Azithromycin 500 MG in Sodium Chloride 0.9% 250 ML IVPB SCH (10:03)
--- NOTE | 2019-01-24 10:08 | CP.PCM.PN ---
Subjective - Date & Time of Evaluation Date of Evaluation: 01/24/19 Time of Evaluation: 07:00 - Subjective Subjective: Progress note for Dr. Kaiser. Patient seen and examined at bedside. Patient states she feels well and has no complaints. Denies fever, chills, nausea, vomiting, shortness of breath, chest pain, and abdominal pain. Objective - Vital Signs/Intake and Output Vital Signs (last 24 hours): Temp Pulse Resp BP Pulse Ox 98.7 F 80 20 115/75 96 01/24/19 07:53 01/24/19 07:53 01/24/19 07:53 01/24/19 10:00 01/24/19 07:53 Intake and Output: 01/24/19 01/24/19 06:59 18:59 Intake Total 100 550 Balance 100 550 - Medications Medications: Current Medications Acetaminophen (Tylenol 325mg Tab) 650 mg PO Q6 PRN PRN Reason: Fever >100.4 F Aspirin (Ecotrin) 81 mg PO DAILY [facility] Last Admin: 01/24/19 10:01 Dose: 81 mg Carbidopa/Levodopa (Sinemet Cr) 1 tab PO DAILY [facility] Last Admin: 01/24/19 10:00 Dose: 1 tab Enalapril Maleate (Vasotec) 2.5 mg PO DAILY [facility] Last Admin: 01/24/19 10:00 Dose: 2.5 mg Famotidine (Pepcid) 20 mg PO DAILY [facility] Last Admin: 01/24/19 10:01 Dose: 20 mg Heparin Sodium (Porcine) (Heparin) 5,000 units SC Q8 [facility] Last Admin: 01/24/19 05:38 Dose: 5,000 units Azithromycin 500 mg/ Sodium (Chloride) 250 mls @ 250 mls/hr IVPB DAILY [facility]; Protocol Last Admin: 01/24/19 10:03 Dose: 250 mls/hr Sodium Chloride (Sodium Chloride 0.9%) 1,000 mls @ 50 mls/hr IV .Q20H [facility] Last Admin: 01/23/19 22:12 Dose: 50 mls/hr Ceftriaxone Sodium 1 gm/ (Sodium Chloride) 100 mls @ 100 mls/hr IVPB Q12H [facility]; Protocol Last Admin: 01/24/19 06:41 Dose: 100 mls/hr Levothyroxine Sodium (Synthroid) 75 mcg PO DAILY@0630 [facility] Last Admin: 01/24/19 05:38 Dose: 75 mcg Losartan Potassium (Cozaar) 50 mg PO DAILY [facility] Last Admin: 01/24/19 10:01 Dose: 50 mg Pneumococcal Polyvalent Vaccine (Pneumovax 23 Vaccine) 0.5 ml IM .ONCE ONE Stop: 01/26/19 10:01 Rosuvastatin Calcium (Crestor) 5 mg PO HS [facility] Last Admin: 01/23/19 22:13 Dose: 5 mg Zolpidem Tartrate (Ambien) 5 mg PO HS PRN PRN Reason: Insomnia - Labs Labs: 01/24/19 07:09 01/24/19 07:09 - Constitutional Appears: No Acute Distress - Head Exam Head Exam: ATRAUMATIC, NORMOCEPHALIC - Eye Exam Eye Exam: EOMI - ENT Exam ENT Exam: Mucous Membranes Moist - Neck Exam Neck Exam: Full ROM, Normal Inspection - Respiratory Exam Respiratory Exam: Decreased Breath Sounds, NORMAL BREATHING PATTERN. absent: Rales, Rhonchi, Wheezes, Respiratory Distress - Cardiovascular Exam Cardiovascular Exam: REGULAR RHYTHM, +S1, +S2 - GI/Abdominal Exam GI & Abdominal Exam: Soft, Normal Bowel Sounds. absent: Distended, Firm, Guarding, Rigid, Tenderness - Extremities Exam Extremities Exam: Normal Capillary Refill. absent: Pedal Edema, Tenderness Additional comments: Contracted LUE - Neurological Exam Additional comments: awake, alert, oriented x2 to person and place. Follows commands. - Psychiatric Exam Psychiatric exam: Anxious - Skin Skin Exam: Dry, Normal Color, Warm Additional comments: Foul smell to palm of L hand, unable to fully inspect due to contraction of extremity Assessment and Plan - Assessment and Plan (Free Text) Plan: 77 y/o female with PMHx of HTN, Parkinson's disease and hypothyroidism presented to the ED due to fevers and sweats, possible L lobe infiltrates seen on CXR Community aquired pneumonia Metabolic encephalopathy 2/2 to infection-improving -CXR: L Lobe infiltrate -Rocepin 1g Q12h and Zithromax 500mg IVPB daily -NS @ 50 -Aspiration precautions -f/u blood cultures Parkinson's disease -c/w home med carbidopa/levodopa 25/100 mg TID Hx of HTN -c/w home med enalapril 2.5 mg daily -c/w home med losartan 50 mg daily -Hold home HCTZ 12.5 Hx of Hypothyroidism -c/w home med synthroid 112 mcg daily Hx of Insomnia -Ambien 5mg qhs PRN Hx of hyperlipidemia -Crestor 5mg for home Lovastatin 10mg daily Hx of anxiety -Xanax 0.25mg BID home med Hx fungal infection to L hand -Nystatin powder TID -Wound care consulted ppx: GI: pepcid 20 mg PO daily DVT: heparin 5000 mg sq q8h Puree Diet Home health aide [facility]: [phone]. Case discussed with Dr. Kaiser. Janice Chan, PGY-1
[2019-01-24] MEDS: Levothyroxine 112 MCG TAB PO SCH (16:42)
[2019-01-24] MEDS: Sodium Chloride 0.9% 1,000 ML IV SCH (17:24)
[2019-01-25] MEDS: Levothyroxine 112 MCG TAB PO SCH (06:30)
--- NOTE | 2019-01-25 07:00 | CP.PCM.PN ---
Subjective - Date & Time of Evaluation Date of Evaluation: 01/25/19 Time of Evaluation: 07:00 - Subjective Subjective: Progress note for Dr. Kaiser. Patient seen and examined at bedside. Patient is more alert today. States " I am well". Denies fever, chills, nausea, vomiting, shortness of breath, chest pain, and abdominal pain. Objective - Vital Signs/Intake and Output Vital Signs (last 24 hours): Temp Pulse Resp BP Pulse Ox 98.6 F 82 20 104/67 96 01/25/19 00:00 01/25/19 00:00 01/25/19 00:00 01/25/19 00:00 01/25/19 00:00 Intake and Output: 01/25/19 01/25/19 06:59 18:59 Intake Total 520 Balance 520 - Medications Medications: Current Medications Acetaminophen (Tylenol 325mg Tab) 650 mg PO Q6 PRN PRN Reason: Fever >100.4 F Alprazolam (Xanax) 0.25 mg PO BID [facility] Stop: 01/31/19 18:01 Last Admin: 01/24/19 17:48 Dose: 0.25 mg Aspirin (Ecotrin) 81 mg PO DAILY [facility] Last Admin: 01/24/19 10:01 Dose: 81 mg Carbidopa/Levodopa (Sinemet) 1 tab PO TID [facility] Last Admin: 01/24/19 17:20 Dose: 1 tab Enalapril Maleate (Vasotec) 2.5 mg PO DAILY [facility] Last Admin: 01/24/19 10:00 Dose: 2.5 mg Famotidine (Pepcid) 20 mg PO DAILY [facility] Last Admin: 01/24/19 10:01 Dose: 20 mg Heparin Sodium (Porcine) (Heparin) 5,000 units SC Q8 [facility] Last Admin: 01/25/19 06:23 Dose: 5,000 units Azithromycin 500 mg/ Sodium (Chloride) 250 mls @ 250 mls/hr IVPB DAILY [facility]; Protocol Last Admin: 01/24/19 10:03 Dose: 250 mls/hr Sodium Chloride (Sodium Chloride 0.9%) 1,000 mls @ 50 mls/hr IV .Q20H [facility] Last Admin: 01/24/19 17:24 Dose: 50 mls/hr Ceftriaxone Sodium 1 gm/ (Sodium Chloride) 100 mls @ 100 mls/hr IVPB Q12H [facility]; Protocol Last Admin: 01/25/19 06:08 Dose: 100 mls/hr Levothyroxine Sodium (Synthroid) 112 mcg PO DAILY@0630 [facility] Last Admin: 01/25/19 06:30 Dose: 112 mcg Losartan Potassium (Cozaar) 50 mg PO DAILY [facility] Last Admin: 01/24/19 10:01 Dose: 50 mg Nystatin (Nystop Topical Powder) 1 applic TOP TID [facility] Last Admin: 01/24/19 21:51 Dose: Not Given Pneumococcal Polyvalent Vaccine (Pneumovax 23 Vaccine) 0.5 ml IM .ONCE ONE Stop: 01/26/19 10:01 Rosuvastatin Calcium (Crestor) 5 mg PO HS [facility] Last Admin: 01/24/19 21:51 Dose: 5 mg Zolpidem Tartrate (Ambien) 5 mg PO HS PRN PRN Reason: Insomnia Last Admin: 01/25/19 00:32 Dose: 5 mg - Labs Labs: 01/24/19 07:09 01/24/19 07:09 - Additional Findings Additional findings: - Constitutional Appears: No Acute Distress - Head Exam Head Exam: ATRAUMATIC, NORMOCEPHALIC - Eye Exam Eye Exam: EOMI - ENT Exam ENT Exam: Mucous Membranes Moist - Neck Exam Neck Exam: Full ROM, Normal Inspection - Respiratory Exam Respiratory Exam: Decreased Breath Sounds, NORMAL BREATHING PATTERN. absent: Rales, Rhonchi, Wheezes, Respiratory Distress - Cardiovascular Exam Cardiovascular Exam: REGULAR RHYTHM, +S1, +S2 - GI/Abdominal Exam GI & Abdominal Exam: Soft, Normal Bowel Sounds. absent: Distended, Firm, Guarding, Rigid, Tenderness - Extremities Exam Extremities Exam: Normal Capillary Refill. absent: Pedal Edema, Tenderness Additional comments: Contracted LUE, UE rigidity, hallux valgus bilaterally - Neurological Exam Additional comments: awake, alert, oriented x2 to person and place. Rigidity in upper extremities. Follows commands. - Psychiatric Exam Psychiatric exam: Anxious - Skin Skin Exam: Dry, Normal Color, Warm Additional comments: L hand foul odor resolved Assessment and Plan - Assessment and Plan (Free Text) Plan: 77 y/o female with PMHx of HTN, Parkinson's disease and hypothyroidism presented to the ED due to fevers and sweats, possible L lobe infiltrates seen on CXR Community aquired pneumonia Metabolic encephalopathy 2/2 to infection-improving -CXR: L Lobe infiltrate -Rocepin 1g Q12h and Zithromax 500mg IVPB daily started 01/23/19 -NS @ 50 -Aspiration precautions -f/u blood cultures Parkinson's disease -c/w home med carbidopa/levodopa 25/100 mg TID Hx of HTN -c/w home med enalapril 2.5 mg daily -c/w home med losartan 50 mg daily -Hold home HCTZ 12.5 Hx of Hypothyroidism -c/w home med synthroid 112 mcg daily Hx of Insomnia -Ambien 5mg qhs PRN Hx of hyperlipidemia -Crestor 5mg for home Lovastatin 10mg daily Hx of anxiety -Xanax 0.25mg BID home med Hx fungal infection to L hand -Nystatin powder TID -Wound care consulted ppx: GI: pepcid 20 mg PO daily DVT: heparin 5000 mg sq q8h Puree Diet Home health aide [facility]: [phone]. Dispo: PT recommends [facility]YLE, placement pending. Case discussed with Dr. Kaiser. Janice Chan, PGY-1
[2019-01-25 07:15] LABS: BASO # 0.1 K/uL (0.0-0.2); EOS # 0.2 K/uL (0.0-0.7); EOS % 1.8 % (0.0-4.0); HEMOGLOBIN 11.5 g/dL (11.0-16.0); LYMPH # 1.4 K/uL (1.0-4.3); LYMPH % 15.2 % (20.0-40.0); MEAN CELL VOLUME 86.6 fL (81.0-99.0); MEAN CORPUSCULAR HEMOGLOBIN 30.1 pg (27.0-31.0); MEAN CORPUSCULAR HGB CONC 34.8 g/dL (33.0-37.0); MEAN PLATELET VOLUME 8.5 fL (7.2-11.7); MONO # 0.7 K/uL (0.0-0.8); MONO % 7.9 % (0.0-10.0); NEUT # 6.8 K/uL (1.8-7.0); NEUT % 74.1 % (50.0-75.0); RBC 3.81 Mil/uL (3.80-5.20); RED CELL DISTRIBUTION WIDTH 14.7 % (11.5-14.5); WHITE BLOOD COUNT 9.2 K/uL (4.8-10.8)
[2019-01-25 07:50] LABS: ALBUMIN 3.1 g/dL (3.5-5.0); ALT/SGPT 18 U/L (9-52); AST/SGOT 15 U/L (14-36); BLOOD UREA NITROGEN 13 mg/dL (7-17); CALCIUM 8.9 mg/dl (8.6-10.4); GFR NON-AFRICAN AMERICAN > 60
[2019-01-25] MEDS: Azithromycin 500 MG in Sodium Chloride 0.9% 250 ML IVPB SCH (09:17)
[2019-01-25] MEDS: Sodium Chloride 0.9% 1,000 ML IV SCH (11:54)
[2019-01-25] MEDS: Carbidopa/Levodopa 25/100 CR PO SCH (21:49)
--- NOTE | 2019-01-26 01:19 | CP.PCM.PN ---
Subjective - Date & Time of Evaluation Date of Evaluation: 01/26/19 Time of Evaluation: 01:14 - Subjective Subjective: Resident Progress Note for Dr. Kaiser Patient examined at bedside. No acute events overnight. 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 Denies fever, chills, nausea, vomiting, shortness of breath, chest pain, and abdominal pain. Objective - Vital Signs/Intake and Output Vital Signs (last 24 hours): Temp Pulse Resp BP Pulse Ox 98.4 F 86 20 110/65 97 01/26/19 00:00 01/26/19 00:00 01/26/19 00:00 01/26/19 00:00 01/26/19 00:00 Intake and Output: 01/25/19 01/26/19 18:59 06:59 Intake Total 695 700 Balance 695 700 - Medications Medications: Current Medications Acetaminophen (Tylenol 325mg Tab) 650 mg PO Q6 PRN PRN Reason: Fever >100.4 F Alprazolam (Xanax) 0.25 mg PO BID [facility] Stop: 01/31/19 18:01 Last Admin: 01/25/19 17:21 Dose: 0.25 mg Aspirin (Ecotrin) 81 mg PO DAILY [facility] Last Admin: 01/25/19 09:13 Dose: 81 mg Carbidopa/Levodopa (Sinemet) 1 tab PO TID [facility] Last Admin: 01/25/19 18:00 Dose: 1 tab Enalapril Maleate (Vasotec) 2.5 mg PO DAILY [facility] Last Admin: 01/25/19 09:13 Dose: 2.5 mg Famotidine (Pepcid) 20 mg PO DAILY [facility] Last Admin: 01/25/19 09:14 Dose: 20 mg Heparin Sodium (Porcine) (Heparin) 5,000 units SC Q8 [facility] Last Admin: 01/25/19 21:47 Dose: 5,000 units Azithromycin 500 mg/ Sodium (Chloride) 250 mls @ 250 mls/hr IVPB DAILY [facility]; Protocol Last Admin: 01/25/19 09:17 Dose: 250 mls/hr Sodium Chloride (Sodium Chloride 0.9%) 1,000 mls @ 50 mls/hr IV .Q20H [facility] Last Admin: 01/25/19 11:54 Dose: Not Given Ceftriaxone Sodium 1 gm/ (Sodium Chloride) 100 mls @ 100 mls/hr IVPB Q12H [facility]; Protocol Last Admin: 01/25/19 19:00 Dose: 100 mls/hr Levothyroxine Sodium (Synthroid) 112 mcg PO DAILY@0630 [facility] Last Admin: 01/25/19 06:30 Dose: 112 mcg Losartan Potassium (Cozaar) 50 mg PO DAILY [facility] Last Admin: 01/25/19 09:13 Dose: 50 mg Nystatin (Nystop Topical Powder) 1 applic TOP TID [facility] Last Admin: 01/25/19 18:00 Dose: 1 applic Pneumococcal Polyvalent Vaccine (Pneumovax 23 Vaccine) 0.5 ml IM .ONCE ONE Stop: 01/26/19 10:01 Rosuvastatin Calcium (Crestor) 5 mg PO HS [facility] Last Admin: 01/25/19 21:47 Dose: 5 mg Zolpidem Tartrate (Ambien) 5 mg PO HS PRN PRN Reason: Insomnia Last Admin: 01/25/19 00:32 Dose: 5 mg - Labs Labs: 01/25/19 06:59 01/25/19 06:59 - Constitutional Appears: No Acute Distress, Chronically Ill - Head Exam Head Exam: ATRAUMATIC, NORMOCEPHALIC - Eye Exam Eye Exam: EOMI - ENT Exam ENT Exam: Mucous Membranes Moist - Neck Exam Neck Exam: Full ROM, Normal Inspection - Respiratory Exam Respiratory Exam: Decreased Breath Sounds, NORMAL BREATHING PATTERN. absent: Rales, Rhonchi, Wheezes, Respiratory Distress - Cardiovascular Exam Cardiovascular Exam: REGULAR RHYTHM, +S1, +S2 - GI/Abdominal Exam GI & Abdominal Exam: Soft, Normal Bowel Sounds. absent: Distended, Firm, Guarding, Rigid, Tenderness - Extremities Exam Extremities Exam: Normal Capillary Refill. absent: Pedal Edema, Tenderness Additional comments: Contracted LUE, UE rigidity, hallux valgus bilaterally - Neurological Exam Additional comments: awake, alert, oriented x2 to person and place. Rigidity in upper extremities. Follows commands. - Psychiatric Exam Psychiatric exam: Anxious - Skin Skin Exam: Dry, Normal Color, Warm Assessment and Plan - Assessment and Plan (Free Text) Assessment: 77 y/o female with PMHx of HTN, Parkinson's disease and hypothyroidism presented to the ED due to fevers and sweats, possible L lobe infiltrates seen on CXR Plan: Community aquired pneumonia Metabolic encephalopathy 2/2 to infection-improving -CXR: L Lobe infiltrate -Rocepin 1g Q12h and Zithromax 500mg IVPB daily started 01/23/19 -NS @ 50 -Aspiration precautions -BCx negative for 48 hrs Parkinson's disease -c/w home med carbidopa/levodopa 25/100 mg TID Hx of HTN -c/w home med enalapril 2.5 mg daily -c/w home med losartan 50 mg daily -Hold home HCTZ 12.5 Hx of Hypothyroidism -c/w home med synthroid 112 mcg daily Hx of Insomnia -Ambien 5mg qhs PRN Hx of hyperlipidemia -Crestor 5mg for home Lovastatin 10mg daily Hx of anxiety -Xanax 0.25mg BID home med Hx fungal infection to L hand -Nystatin powder TID -Wound care consulted ppx: GI: pepcid 20 mg PO daily DVT: heparin 5000 mg sq q8h Puree Diet Home health aide [place]: [phone]. Dispo: PT recommends [facility], placement pending. Jamila Buitrago PGY-1
[2019-01-26] MEDS: Levothyroxine 112 MCG TAB PO SCH (06:45)
[2019-01-26 07:25] LABS: BASO # 0.1 K/uL (0.0-0.2); BASO % 0.8 % (0.0-2.0); EOS # 0.2 K/uL (0.0-0.7); EOS % 2.3 % (0.0-4.0); HEMOGLOBIN 11.2 g/dL (11.0-16.0); LYMPH # 1.1 K/uL (1.0-4.3); LYMPH % 15.4 % (20.0-40.0); MEAN CELL VOLUME 85.9 fL (81.0-99.0); MEAN CORPUSCULAR HEMOGLOBIN 29.5 pg (27.0-31.0); MEAN CORPUSCULAR HGB CONC 34.4 g/dL (33.0-37.0); MEAN PLATELET VOLUME 9.3 fL (7.2-11.7); MONO # 0.6 K/uL (0.0-0.8); MONO % 7.9 % (0.0-10.0); NEUT # 5.3 K/uL (1.8-7.0); NEUT % 73.6 % (50.0-75.0); RBC 3.79 Mil/uL (3.80-5.20); RED CELL DISTRIBUTION WIDTH 14.3 % (11.5-14.5); WHITE BLOOD COUNT 7.2 K/uL (4.8-10.8)
[2019-01-26 07:45] LABS: ALB/GLOB RATIO 1.1 (1.0-2.1); ALBUMIN 2.7 g/dL (3.5-5.0); ALT/SGPT 15 U/L (9-52); AST/SGOT 14 U/L (14-36); BLOOD UREA NITROGEN 9 mg/dL (7-17); CALCIUM 8.3 mg/dl (8.6-10.4); GFR NON-AFRICAN AMERICAN > 60
[2019-01-26] MEDS ORDERED: Pneumococcal 23-Valent Vaccine IM ONE (10:00)
[2019-01-26] MEDS: Azithromycin 500 MG in Sodium Chloride 0.9% 250 ML IVPB SCH (10:14)
[2019-01-26] MEDS ORDERED: Potassium Chloride 20 mEq/15 ml LIQ UD PO ONE (11:24)
[2019-01-26] MEDS: Sodium Chloride 0.9% 1,000 ML IV SCH (18:29)
[2019-01-27 01:46] VITALS: RESP 20
--- NOTE | 2019-01-27 02:35 | CP.PCM.PN ---
Subjective - Date & Time of Evaluation Date of Evaluation: 01/27/19 Time of Evaluation: 02:34 - Subjective Subjective: Resident Progress Note for Dr. Kaiser Patient examined at bedside. No acute events overnight. Will followup for intermediate project manager placement as per POA request. Denies fever, chills, nausea, vomiting, shortness of breath, chest pain, and abdominal pain. Objective - Vital Signs/Intake and Output Vital Signs (last 24 hours): Temp Pulse Resp BP Pulse Ox 98.4 F 59 L 20 98/59 L 97 01/27/19 00:00 01/27/19 00:00 01/27/19 00:00 01/27/19 00:00 01/27/19 00:00 - Medications Medications: Current Medications Acetaminophen (Tylenol 325mg Tab) 650 mg PO Q6 PRN PRN Reason: Fever >100.4 F Alprazolam (Xanax) 0.25 mg PO BID [facility] Stop: 01/31/19 18:01 Last Admin: 01/26/19 17:57 Dose: 0.25 mg Aspirin (Ecotrin) 81 mg PO DAILY [facility] Last Admin: 01/26/19 10:14 Dose: 81 mg Carbidopa/Levodopa (Sinemet) 1 tab PO TID [facility] Last Admin: 01/26/19 17:57 Dose: 1 tab Enalapril Maleate (Vasotec) 2.5 mg PO DAILY [facility] Last Admin: 01/26/19 10:14 Dose: 2.5 mg Famotidine (Pepcid) 20 mg PO DAILY [facility] Last Admin: 01/26/19 10:13 Dose: 20 mg Heparin Sodium (Porcine) (Heparin) 5,000 units SC Q8 [facility] Last Admin: 01/26/19 21:41 Dose: 5,000 units Azithromycin 500 mg/ Sodium (Chloride) 250 mls @ 250 mls/hr IVPB DAILY [facility]; Protocol Last Admin: 01/26/19 10:14 Dose: 250 mls/hr Ceftriaxone Sodium 1 gm/ (Sodium Chloride) 100 mls @ 100 mls/hr IVPB Q12H [facility]; Protocol Last Admin: 01/26/19 18:41 Dose: 100 mls/hr Levothyroxine Sodium (Synthroid) 112 mcg PO DAILY@0630 [facility] Last Admin: 01/26/19 06:45 Dose: 112 mcg Losartan Potassium (Cozaar) 50 mg PO DAILY [facility] Last Admin: 01/26/19 10:14 Dose: 50 mg Nystatin (Nystop Topical Powder) 1 applic TOP TID [facility] Last Admin: 01/26/19 18:02 Dose: 1 applic Rosuvastatin Calcium (Crestor) 5 mg PO HS [facility] Last Admin: 01/26/19 21:42 Dose: 5 mg Zolpidem Tartrate (Ambien) 5 mg PO HS PRN PRN Reason: Insomnia Last Admin: 01/25/19 00:32 Dose: 5 mg - Labs Labs: 01/26/19 07:15 01/26/19 07:15 - Constitutional Appears: No Acute Distress, Chronically Ill - Head Exam Head Exam: ATRAUMATIC, NORMOCEPHALIC - Eye Exam Eye Exam: EOMI - ENT Exam ENT Exam: Mucous Membranes Moist - Neck Exam Neck Exam: Full ROM, Normal Inspection - Respiratory Exam Respiratory Exam: Decreased Breath Sounds, NORMAL BREATHING PATTERN. absent: Rales, Rhonchi, Wheezes, Respiratory Distress - Cardiovascular Exam Cardiovascular Exam: REGULAR RHYTHM, +S1, +S2 - GI/Abdominal Exam GI & Abdominal Exam: Soft, Normal Bowel Sounds. absent: Distended, Firm, Guarding, Rigid, Tenderness - Extremities Exam Extremities Exam: Normal Capillary Refill. absent: Pedal Edema, Tenderness Additional comments: Contracted LUE, UE rigidity, hallux valgus bilaterally - Neurological Exam Additional comments: awake, alert, oriented x2 to person and place. Rigidity in upper extremities. Follows commands. - Psychiatric Exam Psychiatric exam: Anxious - Skin Skin Exam: Dry, Normal Color, Warm Assessment and Plan - Assessment and Plan (Free Text) Assessment: 77 y/o female with PMHx of HTN, Parkinson's disease and hypothyroidism presented to the ED due to fevers and sweats, possible L lobe infiltrates seen on CXR Plan: Community aquired pneumonia Metabolic encephalopathy 2/2 to infection-improving -CXR: L Lobe infiltrate -Rocepin 1g Q12h and Zithromax 500mg IVPB daily started 01/23/19 -NS @ 50 -Aspiration precautions -BCx negative for 3 days Parkinson's disease -c/w home med carbidopa/levodopa 25/100 mg TID Hx of HTN -c/w home med enalapril 2.5 mg daily -c/w home med losartan 50 mg daily -Hold home HCTZ 12.5 Hx of Hypothyroidism -c/w home med synthroid 112 mcg daily Hx of Insomnia -Ambien 5mg qhs PRN Hx of hyperlipidemia -Crestor 5mg for home Lovastatin 10mg daily Hx of anxiety -Xanax 0.25mg BID home med Hx fungal infection to L hand -Nystatin powder TID -Wound care consulted ppx: GI: pepcid 20 mg PO daily DVT: heparin 5000 mg sq q8h Puree Diet Home health aide [place]: [phone]. Dispo: PT recommends KYLE, placement pending. Jamila Buitrago PGY-1
[2019-01-27] MEDS: Levothyroxine 112 MCG TAB PO SCH (06:11)
[2019-01-27 08:42] LABS: BASO # 0.1 K/uL (0.0-0.2); BASO % 1.3 % (0.0-2.0); EOS # 0.3 K/uL (0.0-0.7); EOS % 4.8 % (0.0-4.0); HEMOGLOBIN 10.4 g/dL (11.0-16.0); LYMPH # 1.4 K/uL (1.0-4.3); LYMPH % 22.1 % (20.0-40.0); MEAN CELL VOLUME 87.4 fL (81.0-99.0); MEAN CORPUSCULAR HEMOGLOBIN 30.3 pg (27.0-31.0); MEAN CORPUSCULAR HGB CONC 34.6 g/dL (33.0-37.0); MEAN PLATELET VOLUME 9.5 fL (7.2-11.7); MONO # 0.5 K/uL (0.0-0.8); MONO % 8.2 % (0.0-10.0); NEUT # 3.9 K/uL (1.8-7.0); NEUT % 63.6 % (50.0-75.0); RBC 3.45 Mil/uL (3.80-5.20); RED CELL DISTRIBUTION WIDTH 14.8 % (11.5-14.5); WHITE BLOOD COUNT 6.1 K/uL (4.8-10.8)
[2019-01-27 08:58] LABS: ALBUMIN 2.4 g/dL (3.5-5.0); ALT/SGPT 13 U/L (9-52); AST/SGOT 14 U/L (14-36); BLOOD UREA NITROGEN 5 mg/dL (7-17); CALCIUM 8.1 mg/dl (8.6-10.4); GFR NON-AFRICAN AMERICAN > 60
[2019-01-27] MEDS: Azithromycin 500 MG in Sodium Chloride 0.9% 250 ML IVPB SCH (10:00)
[2019-01-27] MEDS: Sodium Chloride 0.9% 1,000 ML IV SCH (18:05)
--- NOTE | 2019-01-28 00:40 | CP.PCM.PN ---
Subjective - Date & Time of Evaluation Date of Evaluation: 01/28/19 Time of Evaluation: 00:39 - Subjective Subjective: DR MCKENNA SERVICE Pt s/e at bedside, denies any acute complaints overnight, pending KYLE placement, still with dementia Objective - Vital Signs/Intake and Output Vital Signs (last 24 hours): Temp Pulse Resp BP Pulse Ox 97.8 F 62 20 120/80 97 01/27/19 16:00 01/27/19 16:00 01/27/19 16:00 01/27/19 16:00 01/27/19 16:00 Intake and Output: 01/27/19 01/28/19 18:59 06:59 Intake Total 1600 750 Output Total 0 Balance 1600 750 - Medications Medications: Current Medications Acetaminophen (Tylenol 325mg Tab) 650 mg PO Q6 PRN PRN Reason: Fever >100.4 F Alprazolam (Xanax) 0.25 mg PO BID [facility] Stop: 01/31/19 18:01 Last Admin: 01/27/19 18:03 Dose: 0.25 mg Aspirin (Ecotrin) 81 mg PO DAILY [facility] Last Admin: 01/27/19 10:54 Dose: 81 mg Carbidopa/Levodopa (Sinemet) 1 tab PO TID [facility] Last Admin: 01/27/19 18:03 Dose: 1 tab Enalapril Maleate (Vasotec) 2.5 mg PO DAILY [facility] Last Admin: 01/27/19 10:53 Dose: 2.5 mg Famotidine (Pepcid) 20 mg PO DAILY [facility] Last Admin: 01/27/19 10:54 Dose: 20 mg Azithromycin 500 mg/ Sodium (Chloride) 250 mls @ 250 mls/hr IVPB DAILY [facility]; Protocol Last Admin: 01/27/19 10:00 Dose: 250 mls/hr Ceftriaxone Sodium 1 gm/ (Sodium Chloride) 100 mls @ 100 mls/hr IVPB Q12H [facility]; Protocol Last Admin: 01/27/19 18:06 Dose: 100 mls/hr Levothyroxine Sodium (Synthroid) 112 mcg PO DAILY@0630 [facility] Last Admin: 01/27/19 06:11 Dose: 112 mcg Losartan Potassium (Cozaar) 50 mg PO DAILY [facility] Last Admin: 01/27/19 10:54 Dose: 50 mg Nystatin (Nystop Topical Powder) 1 applic TOP TID [facility] Last Admin: 01/27/19 18:04 Dose: 1 applic Rosuvastatin Calcium (Crestor) 5 mg PO HS [facility] Last Admin: 01/27/19 21:11 Dose: 5 mg Zolpidem Tartrate (Ambien) 5 mg PO HS PRN PRN Reason: Insomnia Last Admin: 01/25/19 00:32 Dose: 5 mg - Labs Labs: 01/27/19 08:21 01/27/19 08:21 - Additional Findings Additional findings: - Constitutional Appears: No Acute Distress, Chronically Ill - Head Exam Head Exam: ATRAUMATIC, NORMOCEPHALIC - Eye Exam Eye Exam: EOMI - ENT Exam ENT Exam: Mucous Membranes Moist - Neck Exam Neck Exam: Full ROM, Normal Inspection - Respiratory Exam Respiratory Exam: Decreased Breath Sounds, NORMAL BREATHING PATTERN. absent: Rales, Rhonchi, Wheezes, Respiratory Distress - Cardiovascular Exam Cardiovascular Exam: REGULAR RHYTHM, +S1, +S2 - GI/Abdominal Exam GI & Abdominal Exam: Soft, Normal Bowel Sounds. absent: Distended, Firm, Guarding, Rigid, Tenderness - Extremities Exam Extremities Exam: Normal Capillary Refill. absent: Pedal Edema, Tenderness Additional comments: Contracted LUE, UE rigidity, hallux valgus bilaterally - Neurological Exam Additional comments: awake, alert, oriented x2 to person and place. Rigidity in upper extremities. Follows commands. - Psychiatric Exam Psychiatric exam: Anxious - Skin Skin Exam: Dry, Normal Color, Warm Assessment and Plan - Assessment and Plan (Free Text) Assessment: 77 y/o female with PMHx of HTN, Parkinson's disease and hypothyroidism presented to the ED due to fevers and sweats, possible L lobe infiltrates seen on CXR Plan: Community aquired pneumonia Metabolic encephalopathy 2/2 to infection-improving -CXR: L Lobe infiltrate -Rocepin 1g Q12h and Zithromax 500mg IVPB daily started 01/23/19 -NS @ 50 -Aspiration precautions -BCx negative for 3 days Parkinson's disease -c/w home med carbidopa/levodopa 25/100 mg TID Hx of HTN -c/w home med enalapril 2.5 mg daily -c/w home med losartan 50 mg daily -Hold home HCTZ 12.5 Hx of Hypothyroidism -c/w home med synthroid 112 mcg daily Hx of Insomnia -Ambien 5mg qhs PRN Hx of hyperlipidemia -Crestor 5mg for home Lovastatin 10mg daily Hx of anxiety -Xanax 0.25mg BID home med Hx fungal infection to L hand -Nystatin powder TID -Wound care consulted ppx: GI: pepcid 20 mg PO daily DVT: heparin 5000 mg sq q8h Puree Diet Home health aide [place]: [phone]. Dispo: PT recommends KYLE, placement pending.
[2019-01-28] MEDS: Levothyroxine 112 MCG TAB PO SCH (06:18)
[2019-01-28 07:12] LABS: BASO # 0.1 K/uL (0.0-0.2); BASO % 1.1 % (0.0-2.0); EOS # 0.3 K/uL (0.0-0.7); HEMOGLOBIN 10.9 g/dL (11.0-16.0); LYMPH # 1.3 K/uL (1.0-4.3); LYMPH % 18.9 % (20.0-40.0); MEAN CELL VOLUME 86.2 fL (81.0-99.0); MEAN CORPUSCULAR HEMOGLOBIN 29.1 pg (27.0-31.0); MEAN CORPUSCULAR HGB CONC 33.8 g/dL (33.0-37.0); MEAN PLATELET VOLUME 8.8 fL (7.2-11.7); MONO # 0.6 K/uL (0.0-0.8); MONO % 8.5 % (0.0-10.0); NEUT # 4.5 K/uL (1.8-7.0); NEUT % 66.5 % (50.0-75.0); RBC 3.73 Mil/uL (3.80-5.20); RED CELL DISTRIBUTION WIDTH 14.7 % (11.5-14.5); WHITE BLOOD COUNT 6.8 K/uL (4.8-10.8)
[2019-01-28 07:17] LABS: ALB/GLOB RATIO 1.1 (1.0-2.1); ALBUMIN 2.6 g/dL (3.5-5.0); ALT/SGPT 14 U/L (9-52); AST/SGOT 23 U/L (14-36); BLOOD UREA NITROGEN 5 mg/dL (7-17); CALCIUM 8.3 mg/dl (8.6-10.4); GFR NON-AFRICAN AMERICAN > 60
[2019-01-28] MEDS: Azithromycin 500 MG in Sodium Chloride 0.9% 250 ML IVPB SCH (10:38)
[2019-01-28 16:39] VITALS: TEMP 98
[2019-01-29] MEDS: Levothyroxine 112 MCG TAB PO SCH (06:13)
[2019-01-29 08:16] VITALS: PULSE 74; O2SAT 96
[2019-01-29] MEDS: Azithromycin 500 MG in Sodium Chloride 0.9% 250 ML IVPB SCH (11:00)
[2019-01-29 11:56] LABS: BASO # 0.1 K/uL (0.0-0.2); BASO % 0.9 % (0.0-2.0); EOS # 0.3 K/uL (0.0-0.7); EOS % 3.6 % (0.0-4.0); HEMOGLOBIN 11.1 g/dL (11.0-16.0); LYMPH # 1.3 K/uL (1.0-4.3); LYMPH % 15.5 % (20.0-40.0); MEAN CELL VOLUME 86.5 fL (81.0-99.0); MEAN CORPUSCULAR HEMOGLOBIN 29.3 pg (27.0-31.0); MEAN CORPUSCULAR HGB CONC 33.8 g/dL (33.0-37.0); MEAN PLATELET VOLUME 8.3 fL (7.2-11.7); MONO # 0.7 K/uL (0.0-0.8); MONO % 8.4 % (0.0-10.0); NEUT # 6.2 K/uL (1.8-7.0); NEUT % 71.6 % (50.0-75.0); RBC 3.79 Mil/uL (3.80-5.20); RED CELL DISTRIBUTION WIDTH 14.5 % (11.5-14.5); WHITE BLOOD COUNT 8.7 K/uL (4.8-10.8)
[2019-01-29 12:17] VITALS: BP 143/77
[2019-01-29 12:18] LABS: ALB/GLOB RATIO 1.1 (1.0-2.1); ALBUMIN 2.6 g/dL (3.5-5.0); ALT/SGPT 19 U/L (9-52); AST/SGOT 21 U/L (14-36); BLOOD UREA NITROGEN 4 mg/dL (7-17); CALCIUM 8.3 mg/dl (8.6-10.4); GFR NON-AFRICAN AMERICAN > 60
--- NOTE | 2019-01-29 13:46 | CP.PCM.DIS ---
Provider - Provider Date of Admission: 01/23/19 19:35 Attending physician: Esau Kaiser Jr, MD Consults: 01/24/19 17:06 Wound Care [Nursing Referral for Wound Care] Routine Comment: Physician Instructions: Reason For Exam: L hand foul smelling wound Time Spent in preparation of Discharge (in minutes): 35 Diagnosis - Discharge Diagnosis (1) Pneumonia Status: Acute Hospital Course - Lab Results Lab Results: Micro Results 01/23/19 19:30 Blood-Venous Blood Culture - Final NO GROWTH AFTER 5 DAYS 01/23/19 19:30 Blood-Venous Gram Stain - Final TEST NOT PERFORMED 01/23/19 18:19 Blood-Venous Blood Culture - Final NO GROWTH AFTER 5 DAYS 01/23/19 18:19 Blood-Venous Gram Stain - Final TEST NOT PERFORMED Most Recent Lab Values WBC 8.7 K/uL (4.8-10.8) 01/29/19 11:38 RBC 3.79 Mil/uL (3.80-5.20) L 01/29/19 11:38 Hgb 11.1 g/dL (11.0-16.0) 01/29/19 11:38 Hct 32.8 % (34.0-47.0) L 01/29/19 11:38 MCV 86.5 fL (81.0-99.0) 01/29/19 11:38 MCH 29.3 pg (27.0-31.0) 01/29/19 11:38 MCHC 33.8 g/dL (33.0-37.0) 01/29/19 11:38 RDW 14.5 % (11.5-14.5) 01/29/19 11:38 Plt Count 457 K/uL (130-400) H 01/29/19 11:38 MPV 8.3 fL (7.2-11.7) 01/29/19 11:38 Neut % (Auto) 71.6 % (50.0-75.0) 01/29/19 11:38 Lymph % (Auto) 15.5 % (20.0-40.0) L 01/29/19 11:38 [place] % (Auto) 8.4 % (0.0-10.0) 01/29/19 11:38 Eos % (Auto) 3.6 % (0.0-4.0) 01/29/19 11:38 Baso % (Auto) 0.9 % (0.0-2.0) 01/29/19 11:38 Neut # (Auto) 6.2 K/uL (1.8-7.0) 01/29/19 11:38 Lymph # (Auto) 1.3 K/uL (1.0-4.3) 01/29/19 11:38 [place] # (Auto) 0.7 K/uL (0.0-0.8) 01/29/19 11:38 Eos # (Auto) 0.3 K/uL (0.0-0.7) 01/29/19 11:38 Baso # (Auto) 0.1 K/uL (0.0-0.2) 01/29/19 11:38 pO2 36 mm/Hg (30-55) 01/23/19 19:05 VBG pH 7.38 (7.32-7.43) 01/23/19 19:05 VBG pCO2 43 mmHg (40-60) 01/23/19 19:05 VBG HCO3 24.1 mmol/L 01/23/19 19:05 VBG Total CO2 26.7 mmol/L (22-28) 01/23/19 19:05 VBG O2 Sat (Calc) 69.9 % (40-65) H 01/23/19 19:05 VBG Base Excess 0.0 mmol/L (0.0-2.0) 01/23/19 19:05 VBG Potassium 4.0 mmol/L (3.6-5.2) 01/23/19 19:05 Sodium 137.0 mmol/l (132-148) 01/23/19 19:05 Chloride 105.0 mmol/L (98-107) 01/23/19 19:05 Glucose 96 mg/dl (65-105) 01/23/19 19:05 Lactate 2.1 mmol/L (0.7-2.1) 01/23/19 19:05 Sodium 139 mmol/L (132-148) 01/29/19 11:38 Potassium 3.6 mmol/L (3.6-5.2) 01/29/19 11:38 Chloride 108 mmol/L (98-107) H 01/29/19 11:38 Carbon Dioxide 24 mmol/L (22-30) 01/29/19 11:38 Anion Gap 9 (10-20) L 01/29/19 11:38 BUN 4 mg/dL (7-17) L 01/29/19 11:38 Creatinine 0.6 mg/dL (0.7-1.2) L 01/29/19 11:38 Est GFR ( Amer) > 60 01/29/19 11:38 Est GFR (Non-Af Amer) > 60 01/29/19 11:38 Random Glucose 86 mg/dL (65-105) 01/29/19 11:38 Calcium 8.3 mg/dl (8.6-10.4) L 01/29/19 11:38 Phosphorus 2.7 mg/dL (2.5-4.5) 01/28/19 06:53 Magnesium 1.7 mg/dL (1.6-2.3) 01/28/19 06:53 Total Bilirubin 0.3 mg/dL (0.2-1.3) 01/29/19 11:38 AST 21 U/L (14-36) 01/29/19 11:38 ALT 19 U/L (9-52) 01/29/19 11:38 Alkaline Phosphatase 122 U/L (38-126) 01/29/19 11:38 Total Protein 5.0 g/dL (6.3-8.3) L 01/29/19 11:38 Albumin 2.6 g/dL (3.5-5.0) L 01/29/19 11:38 Globulin 2.4 gm/dL (2.2-3.9) 01/29/19 11:38 Albumin/Globulin Ratio 1.1 (1.0-2.1) 01/29/19 11:38 Venous Blood Potassium 4.0 mmol/L (3.6-5.2) 01/23/19 19:05 Urine Color Yellow (YELLOW) 01/23/19 18:19 Urine Clarity Hazy (Clear) 01/23/19 18:19 Urine pH 5.0 (5.0-8.0) 01/23/19 18:19 Ur Specific [place] 1.023 (1.003-1.030) 01/23/19 18:19 Urine Protein Negative mg/dL (NEGATIVE) 01/23/19 18:19 Urine Glucose (UA) Normal mg/dL (Normal) 01/23/19 18:19 Urine Ketones Negative mg/dL (NEGATIVE) 01/23/19 18:19 Urine Blood Negative (NEGATIVE) 01/23/19 18:19 Urine Nitrate Negative (NEGATIVE) 01/23/19 18:19 Urine Bilirubin Negative (NEGATIVE) 01/23/19 18:19 Urine Urobilinogen Normal mg/dL (0.2-1.0) 01/23/19 18:19 Ur Leukocyte Esterase Neg Tg/uL (Negative) 01/23/19 18:19 Urine Bacteria Rare (<OCC) 01/23/19 18:19 - Hospital Course Hospital Course: On admission: 78 year old female with pmhx of Parkinson's disease, dementia, Hypothyroid, HTN presenting to the ER for fever, patient is minimally verbal but awake. Nurse aid at bedside who lives with patient states patient had decreased in appetite since yesterday and increased lethargy and tiredness. Also noted tiredness and sweating last n9ight, said that she felt warm to touch. Nurse aid has noticed patient to be coughing continuosly since this morning with phlegm, states patient has difficulty clearing phlegm. As per nurse, patient does not complaint of pain. no recent sickness, patient's nurse aid is currently sick with a cold. Pt was last seen at home by PMD who makes house calls about 10 days ago. Hospitalization: 7 y/o female with PMHx of HTN, Parkinson's disease and hypothyroidism presented to the ED due to fevers and sweats, possible L lobe infiltrates seen on CXR Plan: Community aquired pneumonia Metabolic encephalopathy 2/2 to infection-improving -CXR: L Lobe infiltrate -Rocepin 1g Q12h and Zithromax 500mg IVPB daily started 01/23/19 -NS @ 50 -Aspiration precautions -BCx negative for 3 days Parkinson's disease -c/w home med carbidopa/levodopa 25/100 mg TID Hx of HTN -c/w home med enalapril 2.5 mg daily -c/w home med losartan 50 mg daily -Hold home HCTZ 12.5 Hx of Hypothyroidism -c/w home med synthroid 112 mcg daily Hx of Insomnia -Ambien 5mg qhs PRN Hx of hyperlipidemia -Crestor 5mg for home Lovastatin 10mg daily Hx of anxiety -Xanax 0.25mg BID home med Hx fungal infection to L hand -Nystatin powder TID -Wound care consulted ppx: GI: pepcid 20 mg PO daily DVT: heparin 5000 mg sq q8h Puree Diet Home health aide [place]: [phone]. Dispo: PT recommends KYLE, placement pending. On discharge: Patient is stable for discharge as per Dr. Kaiser. Patient will not require any additional prescriptions at this time. Patient has completed her course of antibiotics in the hospital. Patient should continue her usual medication regimen once she is discharged. Patient's home health aide, Alta, has confirmed that patient has her medications at home and does not require any refills. Patient is to follow up with her primary care physician within one week of discharge. Return to the emergency room for new or worsening symptoms. Discharge Exam - Head Exam Head Exam: ATRAUMATIC, NORMOCEPHALIC - Additional Findings Additional findings: - Constitutional Appears: No Acute Distress - Head Exam Head Exam: ATRAUMATIC, NORMOCEPHALIC - Eye Exam Eye Exam: EOMI - ENT Exam ENT Exam: Mucous Membranes Moist - Neck Exam Neck Exam: Full ROM, Normal Inspection - Respiratory Exam Respiratory Exam: Decreased Breath Sounds, NORMAL BREATHING PATTERN. absent: Rales, Rhonchi, Wheezes, Respiratory Distress - Cardiovascular Exam Cardiovascular Exam: REGULAR RHYTHM, +S1, +S2 - GI/Abdominal Exam GI & Abdominal Exam: Soft, Normal Bowel Sounds. absent: Distended, Firm, Guarding, Rigid, Tenderness - Extremities Exam Extremities Exam: Normal Capillary Refill. absent: Pedal Edema, Tenderness Additional comments: Contracted LUE, UE rigidity, hallux valgus bilaterally - Neurological Exam Additional comments: awake, alert, oriented x2 to person and place. Rigidity in upper extremities. Follows commands. - Psychiatric Exam Psychiatric exam: Anxious - Skin Skin Exam: Dry, Normal Color, Warm Discharge Plan - Follow Up Plan Disposition: HOME/ ROUTINE Instructions: Fever, Adult (DC) Additional Instructions: Patient is stable for discharge as per Dr. Kaiser. Patient will not require any additional prescriptions at this time. Patient has completed her course of antibiotics in the hospital. Patient should continue her usual medication regimen once she is discharged. Patient's home health aide, Alta, has confirmed that patient has her medications at home and does not require any refills. Patient is to follow up with her primary care physician within one week of discharge. Return to the emergency room for new or worsening symptoms. Referrals: Esau Kaiser Jr., MD [Medical Doctor] -
== END 2019-01-29 15:35 | disposition home or self-care (01) | DRG 193 ==
LOC: C.ER 16:54 → C.3T 19:35
PROVIDERS: ADMIT Internal Medicine; ATTEND Internal Medicine
DX: J18.9 Pneumonia, unspecified organism (principal); G93.41 Metabolic encephalopathy; R50.9 Fever, unspecified; G20 Parkinson's disease; I10 Essential (primary) hypertension; E03.9 Hypothyroidism, unspecified; G47.00 Insomnia, unspecified; F02.80 Dementia in other diseases classified elsewhere, unspecified severity, without behavioral disturbance, psychotic disturbance, mood disturbance, and anxiety; E78.00 Pure hypercholesterolemia, unspecified; K21.9 Gastro-esophageal reflux disease without esophagitis; Z79.890 Hormone replacement therapy; Z79.899 Other long term (current) drug therapy; Z87.891 Personal history of nicotine dependence; Z90.49 Acquired absence of other specified parts of digestive tract; Z98.1 Arthrodesis status